=== PATIENT | male | born 1945 | race Caucasian/White ===

== ENCOUNTER 2018-11-05 08:25 | Inpatient (IN) ==
[2018-11-05] MEDS ORDERED: SODIUM CHLORIDE 0.9% 500 ML IV STA (09:16)
[2018-11-05 09:35] LABS: Basophils # 0.1 10*3/uL (0.0-0.2); Basophils % 0.6 % (0.0-0.8); Eosinophils # 0.3 10*3/uL (0.0-0.87); Eosinophils % 4.2 % (0.00-10.9); Hemoglobin 12.4 GM/DL (14.0-18.0); Immature Granulocytes % 0.2 %; Immature Granulocytes Absolute 0.02 #; Lymphocytes # 0.7 10*3/uL (1.4-4.0); Lymphocytes % 8.7 % (21.2-54.2); Mean Corpuscular HGB Conc 33.5 GM/DL (32-36); Mean Corpuscular Volume 95.1 FL (87-102); Mean Platelet Volume 10.2 FL (9.6-12.0); Monocytes % 10.8 % (1.7-12.7); Neutrophils % 75.5 % (38.7-73.9); Platelet Count 147 T/CUMM (130-400); Red Blood Count 3.89 MC/CUMM (3.8-5.5); Red Cell Distribution Width 12.4 % (9.3-17.3)
[2018-11-05 09:52] LABS: INR 3.1
[2018-11-05 09:53] LABS: PT Patient Result 33.6 SECS (9.6-12.2)
[2018-11-05 10:17] LABS: Alanine Aminotransferase 18 U/L (16-61); Albumin 3.2 G/DL (3.4-5.0); Alkaline Phosphatase 53 U/L (45-117); Aspartate Amino Transferase 15 U/L (0-37); Blood Urea Nitrogen 19 MG/DL (7-18); Calcium 8.5 MG/DL (8.5-10.1); Estimated Glom Filtration Rate 103 ML/MIN; Glucose 103 MG/DL (74-106); Osmolality,Calculated 284.1 MOS/KG (273-304); Total Protein 6.7 G/DL (6.4-8.3); Troponin I < 0.015 NG/ML (0.00-0.045)
[2018-11-05 11:09] LABS: Apearance,Urine CLEAR (Clear); Bilirubin,Urine Negative (Negative); Blood, Urine Negative (Negative); Glucose,Urine (UA) Negative (Negative); Ketones,Urine 5 mg/dL (Negative); Mucus,Urine Occasional /LPF (Occasional); Nitrite,Urine Negative (Negative); Protein,Urine Negative; RBC,Urine 2 /HPF (0-4); Squamous Epithelial Cell,Urine Occasional /HPF (0-10); Urine Color Yellow (Yellow); Urine Specific Gravity 1.013 (1.001-1.035); Urine Urobilinogen < 2.0 EU/DL (0.2-1.0); WBC,Urine <1 /HPF (0-6)
[2018-11-05] MEDS ORDERED: SODIUM CHLORIDE 0.9% 1,000 ML IV ONE (13:00)
[2018-11-05] MEDS ORDERED: ONDANSETRON 4 MG/2 ML VIAL IV PRN (13:57)
[2018-11-05] MEDS ORDERED: MORPHINE 4 MG/1 ML VIAL IV PRN (14:45)
[2018-11-05] MEDS: LOSARTAN 50 MG TABLET PO SCH (15:21)
[2018-11-05] MEDS: SODIUM CHLORIDE 0.9% 1,000 ML IV SCH (15:24)
[2018-11-05] MEDS ORDERED: LORazepam 2 MG/1 ML VIAL IV ONE ×2 (16:49→17:53)
[2018-11-05] MEDS: WARFARIN 5 MG TABLET PO SCH (17:33)
[2018-11-05] MEDS ORDERED: LORazepam 2 MG/1 ML VIAL IM ONE (17:46)
[2018-11-05] MEDS: carvediloL 12.5 MG TABLET PO SCH (19:08)
[2018-11-06] MEDS: SODIUM CHLORIDE 0.9% 1,000 ML IV SCH (04:59)
[2018-11-06 07:25] LABS: INR 3.2
[2018-11-06 07:27] LABS: PT Patient Result 34.1 SECS (9.6-12.2)
[2018-11-06 07:28] LABS: Basophils % 0.3 % (0.0-0.8); Eosinophils % 0.1 % (0.00-10.9); Hematocrit 37.9 VOL% (42.0-52.0); Hemoglobin 12.4 GM/DL (14.0-18.0); Immature Granulocytes % 0.5 %; Immature Granulocytes Absolute 0.04 #; Lymphocytes # 0.5 10*3/uL (1.4-4.0); Lymphocytes % 5.9 % (21.2-54.2); Mean Corpuscular HGB Conc 32.7 GM/DL (32-36); Mean Corpuscular Volume 96.9 FL (87-102); Mean Platelet Volume 10.8 FL (9.6-12.0); Neutrophils % 85.2 % (38.7-73.9); Platelet Count 155 T/CUMM (130-400); Red Blood Count 3.91 MC/CUMM (3.8-5.5); Red Cell Distribution Width 12.6 % (9.3-17.3); White Blood Count 8.6 T/CUMM (4-12)
[2018-11-06 07:47] LABS: Calcium 8.8 MG/DL (8.5-10.1); Osmolality,Calculated 289.8 MOS/KG (273-304); Risk Ratio 4.06; VLDL CHOLESTEROL 19.4 MG/DL
[2018-11-06] MEDS: hydrALAZINE 20 MG/1 ML VIAL IV PRN (09:13)
[2018-11-06] MEDS: LOSARTAN 50 MG TABLET PO SCH (09:14)
[2018-11-06] MEDS: PANTOPRAZOLE 40 MG TABLET PO SCH (09:14)
[2018-11-06] MEDS: carvediloL 12.5 MG TABLET PO SCH ×2 (09:14→18:22)
[2018-11-06] MEDS: DEXTROSE 5% NACL 0.45% 1,000 ML IV SCH (10:40)
[2018-11-06] MEDS: WARFARIN 5 MG TABLET PO SCH (18:22)
[2018-11-06] MEDS: cefTRIAXone 1,000 MG in SYRINGE 1 EACH IV SCH (18:24)
[2018-11-06] MEDS: TRAVATAN Z BOTH EYES SCH (21:22)
[2018-11-07] MEDS: DEXTROSE 5% NACL 0.45% 1,000 ML IV SCH ×2 (00:09→17:25)
[2018-11-07 04:24] LABS: Basophils % 0.5 % (0.0-0.8); Eosinophils # 0.3 10*3/uL (0.0-0.87); Eosinophils % 3.3 % (0.00-10.9); Hematocrit 34.8 VOL% (42.0-52.0); Hemoglobin 11.8 GM/DL (14.0-18.0); Immature Granulocytes % 0.2 %; Immature Granulocytes Absolute 0.02 #; Lymphocytes # 0.9 10*3/uL (1.4-4.0); Lymphocytes % 10.3 % (21.2-54.2); Mean Corpuscular HGB Conc 33.9 GM/DL (32-36); Mean Corpuscular Volume 95.9 FL (87-102); Mean Platelet Volume 11.2 FL (9.6-12.0); Neutrophils % 73.7 % (38.7-73.9); Platelet Count 159 T/CUMM (130-400); Red Blood Count 3.63 MC/CUMM (3.8-5.5); Red Cell Distribution Width 12.8 % (9.3-17.3); White Blood Count 8.8 T/CUMM (4-12)
[2018-11-07 04:38] LABS: INR 3.4
[2018-11-07 04:43] LABS: Calcium 8.5 MG/DL (8.5-10.1); Osmolality,Calculated 289.1 MOS/KG (273-304)
[2018-11-07 04:55] LABS: PT Patient Result 36.8 SECS (9.6-12.2)
[2018-11-07] MEDS: LOSARTAN 50 MG TABLET PO SCH (09:03)
[2018-11-07] MEDS: carvediloL 12.5 MG TABLET PO SCH ×2 (09:03→18:37)
[2018-11-07] MEDS: PANTOPRAZOLE 40 MG TABLET PO SCH (09:04)
[2018-11-07] MEDS: WARFARIN 5 MG TABLET PO SCH (17:25)
[2018-11-07] MEDS: cefTRIAXone 1,000 MG in SYRINGE 1 EACH IV SCH (17:25)
[2018-11-07 17:47] LABS: Apearance,Urine Slightly Hazy (Clear); Bacteria,Urine Occasional /HPF (Few); Bilirubin,Urine Negative (Negative); Blood, Urine Large mg/dL (Negative); Glucose,Urine (UA) Negative (Negative); Hyaline Casts,Urine 1 /LPF (0-3); Ketones,Urine Negative (Negative); Mucus,Urine Occasional /LPF (Occasional); Nitrite,Urine Negative (Negative); Protein,Urine 30 MG/DL; RBC,Urine 114 /HPF (0-4); Urine Color Yellow (Yellow); Urine Specific Gravity 1.016 (1.001-1.035); Urine Urobilinogen < 2.0 EU/DL (0.2-1.0); WBC,Urine 20 /HPF (0-6)
[2018-11-07] MEDS: ACETAMINOPHEN 325 MG TABLET PO PRN (18:37)
[2018-11-07] MEDS: TRAVATAN Z BOTH EYES SCH (20:59)
[2018-11-07] MEDS: ZIPRASIDONE 20 MG/1 ML VIAL IM PRN (21:27)
[2018-11-08] MEDS: DEXTROSE 5% NACL 0.45% 1,000 ML IV SCH ×2 (05:17→18:29)
[2018-11-08] MEDS: ZIPRASIDONE 20 MG/1 ML VIAL IM PRN (05:30)
[2018-11-08 06:48] LABS: Basophils % 0.3 % (0.0-0.8); Eosinophils # 0.3 10*3/uL (0.0-0.87); Eosinophils % 3.2 % (0.00-10.9); Hematocrit 33.8 VOL% (42.0-52.0); Hemoglobin 11.5 GM/DL (14.0-18.0); Immature Granulocytes % 0.4 %; Immature Granulocytes Absolute 0.04 #; Lymphocytes # 0.7 10*3/uL (1.4-4.0); Lymphocytes % 7.4 % (21.2-54.2); Mean Corpuscular Volume 95.2 FL (87-102); Mean Platelet Volume 10.3 FL (9.6-12.0); Monocytes % 12.4 % (1.7-12.7); Neutrophils % 76.3 % (38.7-73.9); Platelet Count 154 T/CUMM (130-400); Red Blood Count 3.55 MC/CUMM (3.8-5.5); Red Cell Distribution Width 12.6 % (9.3-17.3); White Blood Count 9.1 T/CUMM (4-12)
[2018-11-08 07:00] LABS: INR 4.8
[2018-11-08 07:21] LABS: Calcium 8.6 MG/DL (8.5-10.1)
[2018-11-08] MEDS: LOSARTAN 50 MG TABLET PO SCH (10:02)
[2018-11-08] MEDS: carvediloL 12.5 MG TABLET PO SCH ×2 (10:02→18:29)
[2018-11-08] MEDS: PANTOPRAZOLE 40 MG TABLET PO SCH (10:03)
[2018-11-08] MEDS: cefTRIAXone 2,000 MG in SYRINGE 1 EACH IV SCH (16:55)
[2018-11-08] MEDS: TRAVATAN Z BOTH EYES SCH (21:23)
[2018-11-09] MEDS: cefTRIAXone 2,000 MG in SYRINGE 1 EACH IV SCH ×2 (04:50→17:31)
[2018-11-09] MEDS: DEXTROSE 5% NACL 0.45% 1,000 ML IV SCH ×2 (07:48→22:37)
[2018-11-09 07:51] LABS: PT Patient Result 59.4 SECS (9.6-12.2)
[2018-11-09 07:53] LABS: INR 5.5
[2018-11-09 08:23] LABS: Basophils % 0.2 % (0.0-0.8); Eosinophils % 0.2 % (0.00-10.9); Hematocrit 34.7 VOL% (42.0-52.0); Hemoglobin 11.4 GM/DL (14.0-18.0); Immature Granulocytes % 0.4 %; Immature Granulocytes Absolute 0.03 #; Lymphocytes # 0.4 10*3/uL (1.4-4.0); Lymphocytes % 5.3 % (21.2-54.2); Mean Corpuscular HGB Conc 32.9 GM/DL (32-36); Mean Corpuscular Volume 98.6 FL (87-102); Mean Platelet Volume 11.3 FL (9.6-12.0); Monocytes % 10.1 % (1.7-12.7); Neutrophils % 83.8 % (38.7-73.9); Platelet Count 172 T/CUMM (130-400); Red Blood Count 3.52 MC/CUMM (3.8-5.5); Red Cell Distribution Width 13.1 % (9.3-17.3); White Blood Count 8.1 T/CUMM (4-12)
[2018-11-09 08:24] LABS: Allen Test Positive
[2018-11-09 08:25] LABS: ABG Base Excess 1.9 MMOL/L (-2.5-2.5); ABG HCO3 26.1 MMOL/L (20-26); ABG Oxygen Saturation 99.5 % (95-100); ABG PCO2 42.6 MM HG (35-48); ABG PH 7.407 (7.35-7.45); ABG TCO2 24.1 MMOL/L (23-27)
[2018-11-09 08:42] LABS: Calcium 8.6 MG/DL (8.5-10.1); Osmolality,Calculated 287.1 MOS/KG (273-304)
[2018-11-09] MEDS ORDERED: PHYTONADIONE 5 MG/5 ML ORAL.SYR PO ONE (09:30)
[2018-11-09] MEDS: carvediloL 12.5 MG TABLET PO SCH ×2 (10:34→20:10)
[2018-11-09] MEDS: PANTOPRAZOLE 40 MG TABLET PO SCH (10:34)
[2018-11-09] MEDS: LOSARTAN 50 MG TABLET PO SCH (10:34)
[2018-11-09] MEDS ORDERED: PHYTONADIONE 10 MG/1 ML AMP SUBCUT ONE (11:29)
[2018-11-09] MEDS: ALBUTEROL/IPRATROPIUM 3 ML NEB RESP TX SCH ×2 (13:10→19:45)
[2018-11-09] MEDS: VANCOMYCIN INJ 1,750 MG in SODIUM CHLORIDE 0.9% 500 ML IV SCH (14:17)
[2018-11-09] MEDS: AMPICILLIN INJ 2,000 MG in SODIUM CHLORIDE 0.9% 100 ML IV SCH ×3 (14:17→21:05)
[2018-11-09] MEDS: ACYCLOVIR INJ 750 MG in SODIUM CHLORIDE 0.9% 250 ML IV SCH (18:35)
[2018-11-09] MEDS: DIVALPROEX 250 MG TABLET PO SCH (21:55)
[2018-11-09] MEDS: TRAVATAN Z BOTH EYES SCH (22:37)
[2018-11-10] MEDS: ALBUTEROL/IPRATROPIUM 3 ML NEB RESP TX SCH ×4 (01:03→20:32)
[2018-11-10] MEDS: AMPICILLIN INJ 2,000 MG in SODIUM CHLORIDE 0.9% 100 ML IV SCH ×6 (01:44→21:23)
[2018-11-10] MEDS: ACYCLOVIR INJ 750 MG in SODIUM CHLORIDE 0.9% 250 ML IV SCH ×3 (01:45→17:36)
[2018-11-10] MEDS: VANCOMYCIN INJ 1,750 MG in SODIUM CHLORIDE 0.9% 500 ML IV SCH ×2 (01:45→13:51)
[2018-11-10] MEDS: cefTRIAXone 2,000 MG in SYRINGE 1 EACH IV SCH ×2 (05:45→16:55)
[2018-11-10] MEDS: PANTOPRAZOLE 40 MG TABLET PO SCH (08:01)
[2018-11-10] MEDS: carvediloL 12.5 MG TABLET PO SCH ×2 (08:01→21:22)
[2018-11-10] MEDS: LOSARTAN 50 MG TABLET PO SCH (08:01)
[2018-11-10] MEDS: DIVALPROEX 250 MG TABLET PO SCH ×2 (08:01→21:21)
[2018-11-10 08:32] LABS: INR 2.2
[2018-11-10 09:02] LABS: PT Patient Result 23.6 SECS (9.6-12.2)
[2018-11-10] MEDS: WARFARIN 5 MG TABLET PO SCH (18:20)
[2018-11-10] MEDS: DEXTROSE 5% NACL 0.45% 1,000 ML IV SCH (20:49)
[2018-11-10] MEDS: TRAVATAN Z BOTH EYES SCH (21:40)
[2018-11-11] MEDS: DEXTROSE 5% NACL 0.45% 1,000 ML IV SCH ×3 (00:59→16:24)
[2018-11-11] MEDS: ACETAMINOPHEN 325 MG TABLET PO PRN ×2 (01:00→08:15)
[2018-11-11] MEDS: VANCOMYCIN INJ 1,750 MG in SODIUM CHLORIDE 0.9% 500 ML IV SCH ×2 (01:01→13:55)
[2018-11-11] MEDS: ACYCLOVIR INJ 750 MG in SODIUM CHLORIDE 0.9% 250 ML IV SCH ×3 (01:01→17:59)
[2018-11-11] MEDS: AMPICILLIN INJ 2,000 MG in SODIUM CHLORIDE 0.9% 100 ML IV SCH ×6 (01:01→21:28)
[2018-11-11] MEDS: ALBUTEROL/IPRATROPIUM 3 ML NEB RESP TX SCH ×3 (02:24→20:10)
[2018-11-11 06:08] LABS: Basophils % 0.6 % (0.0-0.8); Eosinophils # 0.5 10*3/uL (0.0-0.87); Hematocrit 29.8 VOL% (42.0-52.0); Hemoglobin 10.2 GM/DL (14.0-18.0); Immature Granulocytes % 0.3 %; Immature Granulocytes Absolute 0.02 #; Lymphocytes # 0.9 10*3/uL (1.4-4.0); Lymphocytes % 13.4 % (21.2-54.2); Mean Corpuscular HGB Conc 34.2 GM/DL (32-36); Mean Corpuscular Volume 95.5 FL (87-102); Mean Platelet Volume 10.2 FL (9.6-12.0); Monocytes % 10.4 % (1.7-12.7); Neutrophils % 68.3 % (38.7-73.9); Platelet Count 186 T/CUMM (130-400); Red Blood Count 3.12 MC/CUMM (3.8-5.5); Red Cell Distribution Width 12.5 % (9.3-17.3); White Blood Count 6.5 T/CUMM (4-12)
[2018-11-11 06:17] LABS: INR 1.4; PT Patient Result 15.2 SECS (9.6-12.2)
[2018-11-11 06:24] LABS: Calcium 8.6 MG/DL (8.5-10.1); Osmolality,Calculated 289.6 MOS/KG (273-304)
[2018-11-11] MEDS: cefTRIAXone 2,000 MG in SYRINGE 1 EACH IV SCH ×2 (06:46→17:11)
[2018-11-11] MEDS ORDERED: MAGNESIUM SULF RIDER 2 GM in PREMIX 1 EACH IV PRN (07:58)
[2018-11-11] MEDS: LOSARTAN 50 MG TABLET PO SCH (08:14)
[2018-11-11] MEDS: carvediloL 12.5 MG TABLET PO SCH ×2 (08:14→18:36)
[2018-11-11] MEDS: PANTOPRAZOLE 40 MG TABLET PO SCH (08:15)
[2018-11-11] MEDS: DIVALPROEX 250 MG TABLET PO SCH ×4 (08:17→21:28)
[2018-11-11] MEDS: LIDOCAINE 5% PATCH TRANSDERM SCH (10:23)
[2018-11-11] MEDS: POTASSIUM CHLORIDE 20 MEQ/15 ML UDCUP PO PRN (10:24)
[2018-11-11] MEDS: hydrALAZINE 20 MG/1 ML VIAL IV PRN (12:29)
[2018-11-11] MEDS: WARFARIN 5 MG TABLET PO SCH (18:36)
[2018-11-11] MEDS: TRAVATAN Z BOTH EYES SCH (21:46)
[2018-11-12] MEDS: VANCOMYCIN INJ 1,750 MG in SODIUM CHLORIDE 0.9% 500 ML IV SCH ×2 (01:47→13:12)
[2018-11-12] MEDS: AMPICILLIN INJ 2,000 MG in SODIUM CHLORIDE 0.9% 100 ML IV SCH ×6 (01:50→22:54)
[2018-11-12] MEDS: ACYCLOVIR INJ 750 MG in SODIUM CHLORIDE 0.9% 250 ML IV SCH ×3 (03:12→19:59)
[2018-11-12] MEDS: cefTRIAXone 2,000 MG in SYRINGE 1 EACH IV SCH ×2 (06:05→17:57)
[2018-11-12 06:06] LABS: INR 1.3; PT Patient Result 14.2 SECS (9.6-12.2)
[2018-11-12] MEDS: ALBUTEROL/IPRATROPIUM 3 ML NEB RESP TX SCH ×4 (08:02→19:44)
[2018-11-12] MEDS: PANTOPRAZOLE 40 MG TABLET PO SCH (09:30)
[2018-11-12] MEDS: POTASSIUM CHLORIDE 20 MEQ/15 ML UDCUP PO PRN (09:30)
[2018-11-12] MEDS: DIVALPROEX 250 MG TABLET PO SCH ×2 (09:31→22:25)
[2018-11-12] MEDS: LOSARTAN 50 MG TABLET PO SCH (09:31)
[2018-11-12] MEDS: LIDOCAINE 5% PATCH TRANSDERM SCH (09:31)
[2018-11-12] MEDS: carvediloL 12.5 MG TABLET PO SCH ×2 (09:33→18:58)
[2018-11-12] MEDS: WARFARIN 5 MG TABLET PO SCH (18:58)
[2018-11-12] MEDS: TRAVATAN Z BOTH EYES SCH (22:24)
[2018-11-13] MEDS: VANCOMYCIN INJ 1,750 MG in SODIUM CHLORIDE 0.9% 500 ML IV SCH ×2 (01:41→15:00)
[2018-11-13] MEDS ORDERED: ALBUTEROL 2.5 MG/3 ML NEB RESP TX ONE (02:07)
[2018-11-13] MEDS ORDERED: propofoL 200 MG/20 ML VIAL IV ONE ×2 (02:47→02:57)
[2018-11-13] MEDS ORDERED: ETOMIDATE 20 MG/10 ML VIAL IV ONE ×2 (02:47→02:54)
[2018-11-13] MEDS ORDERED: ATROPINE 1 MG/10 ML SYRINGE ONE (02:56)
[2018-11-13] MEDS: AMPICILLIN INJ 2,000 MG in SODIUM CHLORIDE 0.9% 100 ML IV SCH ×4 (03:38→14:29)
[2018-11-13 05:44] LABS: Basophils % 0.6 % (0.0-0.8); Eosinophils # 0.1 10*3/uL (0.0-0.87); Eosinophils % 1.3 % (0.00-10.9); Hematocrit 34.5 VOL% (42.0-52.0); Hemoglobin 11.4 GM/DL (14.0-18.0); Immature Granulocytes % 1.4 %; Lymphocytes # 0.6 10*3/uL (1.4-4.0); Lymphocytes % 8.3 % (21.2-54.2); Mean Corpuscular Volume 99.1 FL (87-102); Mean Platelet Volume 10.4 FL (9.6-12.0); Monocytes % 6.8 % (1.7-12.7); Neutrophils % 81.6 % (38.7-73.9); Platelet Count 205 T/CUMM (130-400); Red Blood Count 3.48 MC/CUMM (3.8-5.5)
[2018-11-13] MEDS: PIPERACILLIN/TAZOBACTAM 3,375 MG in SODIUM CHLORIDE 0.9% 100 ML IV SCH ×3 (05:50→20:08)
[2018-11-13] MEDS: ACYCLOVIR INJ 750 MG in SODIUM CHLORIDE 0.9% 250 ML IV SCH ×3 (05:55→18:53)
[2018-11-13 05:56] LABS: Apearance,Urine Slightly Hazy (Clear); Bacteria,Urine Occasional /HPF (Few); Bilirubin,Urine Negative (Negative); Blood, Urine Small mg/dL (Negative); Glucose,Urine (UA) Negative (Negative); Hyaline Casts,Urine 5 /LPF (0-3); Ketones,Urine 20 mg/dL (Negative); Mucus,Urine Occasional /LPF (Occasional); Nitrite,Urine Negative (Negative); Protein,Urine Negative; RBC,Urine 6 /HPF (0-4); Squamous Epithelial Cell,Urine Occasional /HPF (0-10); Urine Color Amber (Yellow); Urine Specific Gravity 1.023 (1.001-1.035); Urine Urobilinogen < 2.0 EU/DL (0.2-1.0); WBC,Urine 3 /HPF (0-6)
[2018-11-13 06:11] LABS: Blood Urea Nitrogen 16 MG/DL (7-18); Calcium 8.7 MG/DL (8.5-10.1); Estimated Glom Filtration Rate 136 ML/MIN; Glucose 95 MG/DL (74-106); Osmolality,Calculated 288.7 MOS/KG (273-304); Troponin I 0.029 NG/ML (0.00-0.045)
[2018-11-13 07:12] LABS: INR 1.5; PT Patient Result 15.7 SECS (9.6-12.2)
[2018-11-13] MEDS: ALBUTEROL/IPRATROPIUM 3 ML NEB RESP TX SCH ×3 (07:58→19:27)
[2018-11-13] MEDS: PANTOPRAZOLE 40 MG TABLET PO SCH (08:03)
[2018-11-13] MEDS: DIVALPROEX 250 MG TABLET PO SCH (08:03)
[2018-11-13] MEDS: LOSARTAN 50 MG TABLET PO SCH (08:31)
[2018-11-13] MEDS: carvediloL 12.5 MG TABLET PO SCH (08:31)
[2018-11-13] MEDS: LIDOCAINE 5% PATCH TRANSDERM SCH (09:02)
[2018-11-13 09:08] LABS: Allen Test Positive; Pt O2 Delivery Device Ventilator
[2018-11-13 09:09] LABS: ABG HCO3 29.3 MMOL/L (20-26); ABG Oxygen Saturation 98.1 % (95-100); ABG PCO2 42.2 MM HG (35-48); ABG TCO2 30.6 MMOL/L (23-27)
[2018-11-13] MEDS: PANTOPRAZOLE 40 MG VIAL IV SCH (09:26)
[2018-11-13] MEDS ORDERED: ATROPINE 1 MG/10 ML SYRINGE IV PRN (09:40)
[2018-11-13] MEDS ORDERED: FUROSEMIDE 20 MG/2 ML VIAL IV SCH (10:00)
[2018-11-13 10:08] LABS: INR 1.5; PT Patient Result 16.6 SECS (9.6-12.2)
[2018-11-13] MEDS ORDERED: DEXTROSE 50% 25 GM/50 ML VIAL IV PRN (14:21)
[2018-11-13] MEDS ORDERED: GLUCAGON 1 MG VIAL IM PRN (14:21)
[2018-11-13] MEDS: INSULIN REGULAR 100 UNIT/ML SUBCUT SCH (18:13)
[2018-11-13] MEDS: WARFARIN 5 MG TABLET PO SCH (18:21)
[2018-11-13] MEDS: TRAVATAN Z BOTH EYES SCH (21:04)
[2018-11-14] MEDS: INSULIN REGULAR 100 UNIT/ML SUBCUT SCH ×4 (00:18→18:53)
[2018-11-14] MEDS: VANCOMYCIN INJ 1,750 MG in SODIUM CHLORIDE 0.9% 500 ML IV SCH ×2 (01:28→13:48)
[2018-11-14] MEDS: PIPERACILLIN/TAZOBACTAM 3,375 MG in SODIUM CHLORIDE 0.9% 100 ML IV SCH ×2 (03:25→13:45)
[2018-11-14] MEDS: ACYCLOVIR INJ 750 MG in SODIUM CHLORIDE 0.9% 250 ML IV SCH ×3 (03:25→19:17)
[2018-11-14 03:37] LABS: ABG Base Excess 7.7 MMOL/L (-2.5-2.5); ABG HCO3 31.5 MMOL/L (20-26); ABG Oxygen Saturation 98.3 % (95-100); ABG PCO2 41.4 MM HG (35-48); ABG PH 7.494 (7.35-7.45); ABG PO2 98.6 MM HG (80-95); ABG TCO2 27.9 MMOL/L (23-27); Allen Test Positive; Pt O2 Delivery Device Ventilator
[2018-11-14 04:49] LABS: Basophils # 0.1 10*3/uL (0.0-0.2); Basophils % 0.7 % (0.0-0.8); Eosinophils # 0.5 10*3/uL (0.0-0.87); Eosinophils % 5.6 % (0.00-10.9); Hematocrit 34.4 VOL% (42.0-52.0); Hemoglobin 11.4 GM/DL (14.0-18.0); Immature Granulocytes % 0.7 %; Immature Granulocytes Absolute 0.06 #; Lymphocytes % 12.3 % (21.2-54.2); Mean Corpuscular HGB Conc 33.1 GM/DL (32-36); Mean Corpuscular Volume 97.5 FL (87-102); Mean Platelet Volume 10.1 FL (9.6-12.0); Monocytes % 12.9 % (1.7-12.7); Neutrophils % 67.8 % (38.7-73.9); Platelet Count 198 T/CUMM (130-400); Red Blood Count 3.53 MC/CUMM (3.8-5.5); White Blood Count 8.5 T/CUMM (4-12)
[2018-11-14 05:05] LABS: INR 1.8; PT Patient Result 19.7 SECS (9.6-12.2)
[2018-11-14 05:34] LABS: Prealbumin 9.3 MG/DL (20-40)
[2018-11-14 05:48] LABS: Calcium 8.5 MG/DL (8.5-10.1); Osmolality,Calculated 291.7 MOS/KG (273-304)
[2018-11-14] MEDS: ALBUTEROL/IPRATROPIUM 3 ML NEB RESP TX SCH ×4 (08:45→19:37)
[2018-11-14] MEDS: LOSARTAN 50 MG TABLET PO SCH (10:40)
[2018-11-14] MEDS: methylPREDNISolone SOD SUC 125 MG/2 ML VIAL IV SCH ×2 (10:41→22:47)
[2018-11-14] MEDS: LIDOCAINE 5% PATCH TRANSDERM SCH (10:41)
[2018-11-14] MEDS: PANTOPRAZOLE 40 MG VIAL IV SCH (10:41)
[2018-11-14] MEDS ORDERED: POTASSIUM CHLORIDE 20 MEQ/15 ML UDCUP PO PRN (16:00)
[2018-11-14] MEDS: WARFARIN 5 MG TABLET PO SCH (17:25)
[2018-11-14] MEDS: hydrALAZINE 20 MG/1 ML VIAL IV PRN (17:26)
[2018-11-14] MEDS: TRAVATAN Z BOTH EYES SCH (21:30)
[2018-11-15] MEDS: INSULIN REGULAR 100 UNIT/ML SUBCUT SCH ×4 (00:10→17:55)
[2018-11-15] MEDS: PIPERACILLIN/TAZOBACTAM 3,375 MG in SODIUM CHLORIDE 0.9% 100 ML IV SCH ×3 (00:16→17:54)
[2018-11-15] MEDS: VANCOMYCIN INJ 1,750 MG in SODIUM CHLORIDE 0.9% 500 ML IV SCH (00:23)
[2018-11-15] MEDS: ALBUTEROL/IPRATROPIUM 3 ML NEB RESP TX SCH ×4 (00:55→20:25)
[2018-11-15] MEDS: ACYCLOVIR INJ 750 MG in SODIUM CHLORIDE 0.9% 250 ML IV SCH ×3 (02:45→19:15)
[2018-11-15 04:29] LABS: ABG HCO3 29.9 MMOL/L (20-26); ABG Oxygen Saturation 96.7 % (95-100); ABG PCO2 41.3 MM HG (35-48); ABG PH 7.472 (7.35-7.45); ABG PO2 80.3 MM HG (80-95); ABG TCO2 27.1 MMOL/L (23-27); Allen Test Positive; Pt O2 Delivery Device Ventilator
[2018-11-15 05:00] LABS: Basophils % 0.1 % (0.0-0.8); Hematocrit 33.3 VOL% (42.0-52.0); Immature Granulocytes % 1.1 %; Immature Granulocytes Absolute 0.09 #; Lymphocytes # 0.4 10*3/uL (1.4-4.0); Lymphocytes % 4.7 % (21.2-54.2); Mean Corpuscular Volume 96.5 FL (87-102); Mean Platelet Volume 10.4 FL (9.6-12.0); Neutrophils % 92.1 % (38.7-73.9); Platelet Count 219 T/CUMM (130-400); Red Blood Count 3.45 MC/CUMM (3.8-5.5); White Blood Count 8.5 T/CUMM (4-12)
[2018-11-15 05:03] LABS: INR 1.5; PT Patient Result 16.7 SECS (9.6-12.2)
[2018-11-15 05:34] LABS: Eosinophils 1 % (0-10); Hypochromasia 1+; Lymphocytes 3 % (20-55); Platelet Estimate Adequate; Segmented Neutrophils 94 % (50-85); Total Cells Counted 100
[2018-11-15 05:36] LABS: Calcium 8.1 MG/DL (8.5-10.1); Osmolality,Calculated 295.7 MOS/KG (273-304)
[2018-11-15] MEDS: LIDOCAINE 5% PATCH TRANSDERM SCH (10:20)
[2018-11-15] MEDS: PANTOPRAZOLE 40 MG VIAL IV SCH (10:20)
[2018-11-15] MEDS: LOSARTAN 50 MG TABLET PO SCH (10:37)
[2018-11-15] MEDS: methylPREDNISolone SOD SUC 125 MG/2 ML VIAL IV SCH ×2 (11:34→21:31)
[2018-11-15] MEDS: ENOXAPARIN 120 MG/0.8 ML SYRINGE SUBCUT SCH ×2 (12:31→22:16)
[2018-11-15] MEDS: WARFARIN 5 MG TABLET PO SCH (17:55)
[2018-11-15] MEDS: fentaNYL INJ 1,250 MCG in SODIUM CHLORIDE 0.9% 225 ML IV PRN (20:39)
[2018-11-15] MEDS: TRAVATAN Z BOTH EYES SCH (21:06)
[2018-11-16] MEDS: INSULIN REGULAR 100 UNIT/ML SUBCUT SCH ×4 (00:40→18:30)
[2018-11-16] MEDS: PIPERACILLIN/TAZOBACTAM 3,375 MG in SODIUM CHLORIDE 0.9% 100 ML IV SCH ×4 (00:41→23:40)
[2018-11-16] MEDS: ALBUTEROL/IPRATROPIUM 3 ML NEB RESP TX SCH ×4 (02:06→19:55)
[2018-11-16] MEDS: ACYCLOVIR INJ 750 MG in SODIUM CHLORIDE 0.9% 250 ML IV SCH ×2 (02:52→12:03)
[2018-11-16] MEDS: fentaNYL INJ 1,250 MCG in SODIUM CHLORIDE 0.9% 225 ML IV PRN ×2 (02:52→14:33)
[2018-11-16 03:36] LABS: ABG Base Excess 6.5 MMOL/L (-2.5-2.5); ABG HCO3 30.3 MMOL/L (20-26); ABG Oxygen Saturation 96.5 % (95-100); ABG PH 7.451 (7.35-7.45); ABG PO2 78.1 MM HG (80-95); ABG TCO2 28.2 MMOL/L (23-27); Allen Test Positive; Pt O2 Delivery Device Ventilator
[2018-11-16 05:35] LABS: INR 1.7; PT Patient Result 18.2 SECS (9.6-12.2)
[2018-11-16 05:56] LABS: Calcium 8.2 MG/DL (8.5-10.1); Osmolality,Calculated 297.6 MOS/KG (273-304)
[2018-11-16] MEDS: PANTOPRAZOLE 40 MG VIAL IV SCH (08:57)
[2018-11-16] MEDS: LIDOCAINE 5% PATCH TRANSDERM SCH (08:58)
[2018-11-16] MEDS ORDERED: FUROSEMIDE 20 MG TABLET PO SCH (09:00)
[2018-11-16] MEDS: LOSARTAN 50 MG TABLET PO SCH (11:39)
[2018-11-16] MEDS: methylPREDNISolone SOD SUC 125 MG/2 ML VIAL IV SCH ×2 (12:03→21:52)
[2018-11-16] MEDS: ENOXAPARIN 120 MG/0.8 ML SYRINGE SUBCUT SCH ×2 (12:03→23:40)
[2018-11-16] MEDS: WARFARIN 5 MG TABLET PO SCH (18:26)
[2018-11-16] MEDS: TRAVATAN Z BOTH EYES SCH (21:53)
[2018-11-17] MEDS: fentaNYL INJ 1,250 MCG in SODIUM CHLORIDE 0.9% 225 ML IV PRN ×3 (00:15→19:40)
[2018-11-17] MEDS: INSULIN REGULAR 100 UNIT/ML SUBCUT SCH ×4 (00:50→18:16)
[2018-11-17] MEDS: ALBUTEROL/IPRATROPIUM 3 ML NEB RESP TX SCH ×4 (01:08→19:43)
[2018-11-17 04:38] LABS: INR 1.6; PT Patient Result 17.8 SECS (9.6-12.2)
[2018-11-17 04:42] LABS: Basophils % 0.2 % (0.0-0.8); Hematocrit 33.6 VOL% (42.0-52.0); Hemoglobin 10.8 GM/DL (14.0-18.0); Immature Granulocytes % 1.4 %; Immature Granulocytes Absolute 0.12 #; Lymphocytes # 0.5 10*3/uL (1.4-4.0); Lymphocytes % 5.9 % (21.2-54.2); Mean Corpuscular HGB Conc 32.1 GM/DL (32-36); Mean Corpuscular Volume 100.9 FL (87-102); Mean Platelet Volume 10.5 FL (9.6-12.0); Neutrophils % 89.5 % (38.7-73.9); Platelet Count 252 T/CUMM (130-400); Red Blood Count 3.33 MC/CUMM (3.8-5.5); Red Cell Distribution Width 13.8 % (9.3-17.3); White Blood Count 8.5 T/CUMM (4-12)
[2018-11-17 04:43] LABS: Albumin 2.6 G/DL (3.4-5.0); Bilirubin,Total 0.8 MG/DL (0.2-1.0); Calcium 8.5 MG/DL (8.5-10.1); Osmolality,Calculated 301.7 MOS/KG (273-304); Total Protein 6.3 G/DL (6.4-8.3)
[2018-11-17 05:31] LABS: Lymphocytes 4 % (20-55); Nucleated Red Blood Cells 1 (0-5); Segmented Neutrophils 91 % (50-85); Total Cells Counted 100
[2018-11-17 05:32] LABS: Platelet Estimate Adequate; Polychromasia Few
[2018-11-17 05:43] LABS: Allen Test Positive; Pt O2 Delivery Device Ventilator
[2018-11-17 05:44] LABS: ABG Base Excess 6.2 MMOL/L (-2.5-2.5); ABG Oxygen Saturation 98.1 % (95-100); ABG PCO2 48.5 MM HG (35-48); ABG PH 7.423 (7.35-7.45); ABG PO2 96.2 MM HG (80-95); ABG TCO2 28.5 MMOL/L (23-27)
[2018-11-17] MEDS ORDERED: FUROSEMIDE 20 MG/2 ML VIAL IV ONE (08:08)
[2018-11-17] MEDS: PANTOPRAZOLE 40 MG VIAL IV SCH (08:11)
[2018-11-17] MEDS: PIPERACILLIN/TAZOBACTAM 3,375 MG in SODIUM CHLORIDE 0.9% 100 ML IV SCH ×2 (08:21→16:31)
[2018-11-17] MEDS: LOSARTAN 50 MG TABLET PO SCH (08:48)
[2018-11-17] MEDS: LIDOCAINE 5% PATCH TRANSDERM SCH (08:49)
[2018-11-17] MEDS: LANSOPRAZOLE ODT 30 MG TABLET PO SCH (08:49)
[2018-11-17] MEDS: methylPREDNISolone SOD SUC 125 MG/2 ML VIAL IV SCH ×2 (09:49→22:00)
[2018-11-17] MEDS: ENOXAPARIN 120 MG/0.8 ML SYRINGE SUBCUT SCH ×2 (12:08→22:11)
[2018-11-17] MEDS: WARFARIN 3 MG TABLET PO SCH (18:15)
[2018-11-17] MEDS: TRAVATAN Z BOTH EYES SCH (22:00)
[2018-11-18] MEDS: INSULIN REGULAR 100 UNIT/ML SUBCUT SCH ×4 (00:40→18:24)
[2018-11-18] MEDS: PIPERACILLIN/TAZOBACTAM 3,375 MG in SODIUM CHLORIDE 0.9% 100 ML IV SCH ×3 (00:41→15:07)
[2018-11-18] MEDS: ALBUTEROL/IPRATROPIUM 3 ML NEB RESP TX SCH ×4 (01:33→19:52)
[2018-11-18 04:26] LABS: ABG Base Excess 8.7 MMOL/L (-2.5-2.5); ABG HCO3 32.5 MMOL/L (20-26); ABG Oxygen Saturation 97.8 % (95-100); ABG PCO2 44.2 MM HG (35-48); ABG PH 7.484 (7.35-7.45); ABG PO2 86.8 MM HG (80-95)
[2018-11-18 05:14] LABS: Basophils % 0.1 % (0.0-0.8); Eosinophils % 0.3 % (0.00-10.9); Hematocrit 32.2 VOL% (42.0-52.0); Hemoglobin 10.4 GM/DL (14.0-18.0); Immature Granulocytes % 2.2 %; Immature Granulocytes Absolute 0.17 #; Lymphocytes # 1.1 10*3/uL (1.4-4.0); Lymphocytes % 14.1 % (21.2-54.2); Mean Corpuscular HGB Conc 32.3 GM/DL (32-36); Mean Platelet Volume 10.5 FL (9.6-12.0); Monocytes % 10.6 % (1.7-12.7); Neutrophils % 72.7 % (38.7-73.9); Platelet Count 228 T/CUMM (130-400); Red Blood Count 3.22 MC/CUMM (3.8-5.5); Red Cell Distribution Width 13.4 % (9.3-17.3); White Blood Count 7.8 T/CUMM (4-12)
[2018-11-18 05:16] LABS: INR 1.8; PT Patient Result 19.5 SECS (9.6-12.2)
[2018-11-18] MEDS: fentaNYL INJ 1,250 MCG in SODIUM CHLORIDE 0.9% 225 ML IV PRN ×2 (05:31→14:55)
[2018-11-18 05:59] LABS: Calcium 8.8 MG/DL (8.5-10.1); Osmolality,Calculated 298.7 MOS/KG (273-304)
[2018-11-18] MEDS: LIDOCAINE 5% PATCH TRANSDERM SCH (09:31)
[2018-11-18] MEDS: LANSOPRAZOLE ODT 30 MG TABLET PO SCH (09:32)
[2018-11-18] MEDS: methylPREDNISolone SOD SUC 125 MG/2 ML VIAL IV SCH ×2 (09:32→22:00)
[2018-11-18] MEDS: LOSARTAN 50 MG TABLET PO SCH (09:32)
[2018-11-18] MEDS: ENOXAPARIN 120 MG/0.8 ML SYRINGE SUBCUT SCH ×2 (11:56→22:00)
[2018-11-18] MEDS: WARFARIN 3 MG TABLET PO SCH (18:24)
[2018-11-18] MEDS: TRAVATAN Z BOTH EYES SCH (22:00)
[2018-11-19] MEDS: fentaNYL INJ 1,250 MCG in SODIUM CHLORIDE 0.9% 225 ML IV PRN ×3 (00:03→12:08)
[2018-11-19] MEDS: INSULIN REGULAR 100 UNIT/ML SUBCUT SCH ×4 (00:30→18:27)
[2018-11-19] MEDS: PIPERACILLIN/TAZOBACTAM 3,375 MG in SODIUM CHLORIDE 0.9% 100 ML IV SCH ×3 (01:25→16:05)
[2018-11-19] MEDS: hydrALAZINE 20 MG/1 ML VIAL IV PRN (01:30)
[2018-11-19] MEDS: ALBUTEROL/IPRATROPIUM 3 ML NEB RESP TX SCH ×4 (01:52→19:16)
[2018-11-19 04:21] LABS: ABG Base Excess 7.1 MMOL/L (-2.5-2.5); ABG HCO3 30.9 MMOL/L (20-26); ABG Oxygen Saturation 97.1 % (95-100); ABG PCO2 41.5 MM HG (35-48); ABG PH 7.484 (7.35-7.45); ABG PO2 81.4 MM HG (80-95); ABG TCO2 27.9 MMOL/L (23-27); Allen Test Positive; Pt O2 Delivery Device Ventilator
[2018-11-19 05:15] LABS: INR 1.9
[2018-11-19 05:16] LABS: Basophils % 0.1 % (0.0-0.8); Hematocrit 31.8 VOL% (42.0-52.0); Hemoglobin 10.5 GM/DL (14.0-18.0); Immature Granulocytes % 2.3 %; Immature Granulocytes Absolute 0.17 #; Lymphocytes # 0.5 10*3/uL (1.4-4.0); Lymphocytes % 6.1 % (21.2-54.2); Mean Corpuscular Volume 97.2 FL (87-102); Mean Platelet Volume 10.5 FL (9.6-12.0); Monocytes % 1.9 % (1.7-12.7); Neutrophils % 89.6 % (38.7-73.9); Platelet Count 238 T/CUMM (130-400); Red Blood Count 3.27 MC/CUMM (3.8-5.5); Red Cell Distribution Width 13.2 % (9.3-17.3); White Blood Count 7.4 T/CUMM (4-12)
[2018-11-19 05:23] LABS: Calcium 8.4 MG/DL (8.5-10.1); Osmolality,Calculated 290.4 MOS/KG (273-304)
[2018-11-19] MEDS: LIDOCAINE 5% PATCH TRANSDERM SCH (09:15)
[2018-11-19] MEDS: LOSARTAN 50 MG TABLET PO SCH (09:15)
[2018-11-19] MEDS: LANSOPRAZOLE ODT 30 MG TABLET PO SCH (09:17)
[2018-11-19] MEDS: methylPREDNISolone SOD SUC 125 MG/2 ML VIAL IV SCH ×2 (10:00→22:02)
[2018-11-19] MEDS: ENOXAPARIN 120 MG/0.8 ML SYRINGE SUBCUT SCH ×2 (12:19→22:03)
[2018-11-19] MEDS ORDERED: DEXMEDETOMIDINE 200 MCG in SODIUM CHLORIDE 0.9% 48 ML IV PRN (12:50)
[2018-11-19] MEDS: WARFARIN 3 MG TABLET PO SCH (18:27)
[2018-11-19] MEDS: DEXMEDETOMIDINE 400 MCG in SODIUM CHLORIDE 0.9% 96 ML IV PRN (18:51)
[2018-11-20] MEDS: TRAVATAN Z BOTH EYES SCH ×2 (00:10→21:57)
[2018-11-20] MEDS: INSULIN REGULAR 100 UNIT/ML SUBCUT SCH ×4 (00:16→18:32)
[2018-11-20] MEDS: PIPERACILLIN/TAZOBACTAM 3,375 MG in SODIUM CHLORIDE 0.9% 100 ML IV SCH ×3 (00:21→17:15)
[2018-11-20] MEDS: ALBUTEROL/IPRATROPIUM 3 ML NEB RESP TX SCH ×4 (00:39→19:18)
[2018-11-20 04:17] LABS: ABG Base Excess 4.7 MMOL/L (-2.5-2.5); ABG HCO3 28.6 MMOL/L (20-26); ABG Oxygen Saturation 98.2 % (95-100); ABG PCO2 44.2 MM HG (35-48); ABG PH 7.433 (7.35-7.45); ABG TCO2 26.2 MMOL/L (23-27); Allen Test Positive; Pt O2 Delivery Device Ventilator
[2018-11-20 04:47] LABS: Basophils % 0.1 % (0.0-0.8); Hematocrit 35.9 VOL% (42.0-52.0); Hemoglobin 11.7 GM/DL (14.0-18.0); Immature Granulocytes % 1.5 %; Immature Granulocytes Absolute 0.12 #; Lymphocytes # 0.4 10*3/uL (1.4-4.0); Mean Corpuscular HGB Conc 32.6 GM/DL (32-36); Mean Corpuscular Volume 97.3 FL (87-102); Mean Platelet Volume 10.6 FL (9.6-12.0); Monocytes % 6.6 % (1.7-12.7); Neutrophils % 86.8 % (38.7-73.9); Platelet Count 254 T/CUMM (130-400); Red Blood Count 3.69 MC/CUMM (3.8-5.5); Red Cell Distribution Width 13.3 % (9.3-17.3); White Blood Count 7.9 T/CUMM (4-12)
[2018-11-20 04:53] LABS: PT Patient Result 22.1 SECS (9.6-12.2)
[2018-11-20 04:58] LABS: Calcium 8.8 MG/DL (8.5-10.1); Osmolality,Calculated 289.7 MOS/KG (273-304)
[2018-11-20 05:07] LABS: Prealbumin 25.2 MG/DL (20-40)
[2018-11-20] MEDS: DEXMEDETOMIDINE 400 MCG in SODIUM CHLORIDE 0.9% 96 ML IV PRN ×3 (05:48→23:04)
[2018-11-20] MEDS: hydrALAZINE 20 MG/1 ML VIAL IV PRN ×2 (06:15→22:07)
[2018-11-20] MEDS: fentaNYL INJ 1,250 MCG in SODIUM CHLORIDE 0.9% 225 ML IV PRN ×2 (09:10→23:04)
[2018-11-20] MEDS: LOSARTAN 50 MG TABLET PO SCH (09:27)
[2018-11-20] MEDS: LANSOPRAZOLE ODT 30 MG TABLET PO SCH (09:28)
[2018-11-20] MEDS: ENOXAPARIN 120 MG/0.8 ML SYRINGE SUBCUT SCH ×2 (10:50→22:23)
[2018-11-20] MEDS: methylPREDNISolone SOD SUC 125 MG/2 ML VIAL IV SCH ×2 (10:51→21:57)
[2018-11-20] MEDS: LIDOCAINE 5% PATCH TRANSDERM SCH (15:26)
[2018-11-20] MEDS: WARFARIN 3 MG TABLET PO SCH (18:32)
[2018-11-20] MEDS: amLODIPine 10 MG TABLET PO SCH (21:57)
[2018-11-21] MEDS: ALBUTEROL/IPRATROPIUM 3 ML NEB RESP TX SCH ×4 (00:30→21:12)
[2018-11-21] MEDS: PIPERACILLIN/TAZOBACTAM 3,375 MG in SODIUM CHLORIDE 0.9% 100 ML IV SCH ×3 (01:20→16:38)
[2018-11-21] MEDS: INSULIN REGULAR 100 UNIT/ML SUBCUT SCH ×4 (01:23→18:56)
[2018-11-21 04:14] LABS: INR 2.4
[2018-11-21 04:17] LABS: Basophils % 0.1 % (0.0-0.8); Hematocrit 35.6 VOL% (42.0-52.0); Hemoglobin 11.9 GM/DL (14.0-18.0); Immature Granulocytes % 0.9 %; Immature Granulocytes Absolute 0.08 #; Lymphocytes # 0.3 10*3/uL (1.4-4.0); Lymphocytes % 3.7 % (21.2-54.2); Mean Corpuscular HGB Conc 33.4 GM/DL (32-36); Mean Corpuscular Volume 96.2 FL (87-102); Mean Platelet Volume 10.5 FL (9.6-12.0); Monocytes % 4.4 % (1.7-12.7); Neutrophils % 90.9 % (38.7-73.9); Platelet Count 250 T/CUMM (130-400); Red Cell Distribution Width 13.2 % (9.3-17.3)
[2018-11-21 04:24] LABS: PT Patient Result 25.4 SECS (9.6-12.2)
[2018-11-21 04:42] LABS: Lymphocytes 4 % (20-55); Platelet Estimate Normal; Segmented Neutrophils 92 % (50-85); Total Cells Counted 100
[2018-11-21 05:14] LABS: ABG Base Excess 5.4 MMOL/L (-2.5-2.5); ABG HCO3 29.2 MMOL/L (20-26); ABG Oxygen Saturation 96.8 % (95-100); ABG PCO2 42.1 MM HG (35-48); ABG PH 7.458 (7.35-7.45); ABG PO2 81.3 MM HG (80-95); ABG TCO2 25.9 MMOL/L (23-27); Allen Test Positive; Pt O2 Delivery Device Ventilator
[2018-11-21 05:48] LABS: Calcium 8.7 MG/DL (8.5-10.1); Osmolality,Calculated 285.5 MOS/KG (273-304)
[2018-11-21] MEDS: methylPREDNISolone SOD SUC 125 MG/2 ML VIAL IV SCH ×2 (09:40→21:43)
[2018-11-21] MEDS: LIDOCAINE 5% PATCH TRANSDERM SCH (09:40)
[2018-11-21] MEDS: LOSARTAN 50 MG TABLET PO SCH (09:41)
[2018-11-21] MEDS: LANSOPRAZOLE ODT 30 MG TABLET PO SCH (09:41)
[2018-11-21] MEDS: ENOXAPARIN 120 MG/0.8 ML SYRINGE SUBCUT SCH (12:27)
[2018-11-21] MEDS: DONEPEZIL 5 MG TABLET PO SCH (12:27)
[2018-11-21] MEDS: DEXMEDETOMIDINE 400 MCG in SODIUM CHLORIDE 0.9% 96 ML IV PRN ×2 (12:29→16:53)
[2018-11-21] MEDS: fentaNYL INJ 1,250 MCG in SODIUM CHLORIDE 0.9% 225 ML IV PRN (14:46)
[2018-11-21] MEDS: WARFARIN 3 MG TABLET PO SCH (18:44)
[2018-11-21] MEDS: TRAVATAN Z BOTH EYES SCH (21:43)
[2018-11-21] MEDS: amLODIPine 10 MG TABLET PO SCH (21:44)
[2018-11-22] MEDS: PIPERACILLIN/TAZOBACTAM 3,375 MG in SODIUM CHLORIDE 0.9% 100 ML IV SCH ×4 (00:17→23:48)
[2018-11-22] MEDS: INSULIN REGULAR 100 UNIT/ML SUBCUT SCH ×5 (00:18→23:37)
[2018-11-22] MEDS: ALBUTEROL/IPRATROPIUM 3 ML NEB RESP TX SCH ×4 (00:57→19:53)
[2018-11-22] MEDS: DEXMEDETOMIDINE 400 MCG in SODIUM CHLORIDE 0.9% 96 ML IV PRN (04:16)
[2018-11-22] MEDS: fentaNYL INJ 1,250 MCG in SODIUM CHLORIDE 0.9% 225 ML IV PRN (04:17)
[2018-11-22 04:27] LABS: Basophils % 0.1 % (0.0-0.8); Hematocrit 35.7 VOL% (42.0-52.0); Hemoglobin 11.9 GM/DL (14.0-18.0); Immature Granulocytes % 0.8 %; Immature Granulocytes Absolute 0.06 #; Lymphocytes # 0.3 10*3/uL (1.4-4.0); Lymphocytes % 4.3 % (21.2-54.2); Mean Corpuscular HGB Conc 33.3 GM/DL (32-36); Mean Corpuscular Volume 96.7 FL (87-102); Mean Platelet Volume 10.7 FL (9.6-12.0); Monocytes % 3.9 % (1.7-12.7); Neutrophils % 90.9 % (38.7-73.9); Platelet Count 255 T/CUMM (130-400); Red Blood Count 3.69 MC/CUMM (3.8-5.5); Red Cell Distribution Width 13.5 % (9.3-17.3); White Blood Count 7.2 T/CUMM (4-12)
[2018-11-22 04:35] LABS: INR 2.3
[2018-11-22 04:47] LABS: Calcium 8.4 MG/DL (8.5-10.1); Osmolality,Calculated 280.8 MOS/KG (273-304)
[2018-11-22 05:07] LABS: Lymphocytes 4 % (20-55); Metamyelocytes 1 %; Platelet Estimate Normal; Segmented Neutrophils 95 % (50-85); Total Cells Counted 100
[2018-11-22 05:18] LABS: ABG Base Excess 4.3 MMOL/L (-2.5-2.5); ABG HCO3 28.2 MMOL/L (20-26); ABG Oxygen Saturation 97.8 % (95-100); ABG PH 7.445 (7.35-7.45); ABG TCO2 24.2 MMOL/L (23-27); Allen Test Positive; Pt O2 Delivery Device Ventilator
[2018-11-22 07:24] LABS: ABG Base Excess 4.6 MMOL/L (-2.5-2.5); ABG HCO3 28.4 MMOL/L (20-26); ABG PCO2 44.8 MM HG (35-48); ABG PH 7.428 (7.35-7.45); ABG PO2 79.6 MM HG (80-95); Allen Test Positive; Pt O2 Delivery Device Other
[2018-11-22] MEDS: LANSOPRAZOLE ODT 30 MG TABLET PO SCH (08:38)
[2018-11-22] MEDS: LIDOCAINE 5% PATCH TRANSDERM SCH (08:38)
[2018-11-22] MEDS: LOSARTAN 50 MG TABLET PO SCH (08:38)
[2018-11-22] MEDS: DONEPEZIL 5 MG TABLET PO SCH (08:39)
[2018-11-22] MEDS: methylPREDNISolone SOD SUC 125 MG/2 ML VIAL IV SCH ×2 (11:32→21:38)
[2018-11-22 11:41] LABS: Allen Test Positive
[2018-11-22 11:42] LABS: ABG Base Excess 5.7 MMOL/L (-2.5-2.5); ABG HCO3 29.5 MMOL/L (20-26); ABG Oxygen Saturation 97.2 % (95-100); ABG PCO2 46.8 MM HG (35-48); ABG PH 7.429 (7.35-7.45); ABG PO2 88.5 MM HG (80-95); ABG TCO2 27.2 MMOL/L (23-27)
[2018-11-22] MEDS: HALOPERIDOL 5 MG/ML AMP IV PRN ×2 (13:04→16:15)
[2018-11-22] MEDS ORDERED: ZIPRASIDONE 20 MG/1 ML VIAL IM ONE (16:01)
[2018-11-22] MEDS ORDERED: HALOPERIDOL 5 MG/ML AMP IV ONE (16:03)
[2018-11-22] MEDS: WARFARIN 3 MG TABLET PO SCH (18:34)
[2018-11-22] MEDS: ACETAMINOPHEN 325 MG TABLET PO PRN (21:19)
[2018-11-22] MEDS: amLODIPine 10 MG TABLET PO SCH (21:19)
[2018-11-22] MEDS: TRAVATAN Z BOTH EYES SCH (21:20)
[2018-11-23] MEDS: ALBUTEROL/IPRATROPIUM 3 ML NEB RESP TX SCH ×4 (00:55→19:31)
[2018-11-23 03:27] LABS: ABG Base Excess 4.6 MMOL/L (-2.5-2.5); ABG HCO3 28.4 MMOL/L (20-26); ABG Oxygen Saturation 94.7 % (95-100); ABG PCO2 39.2 MM HG (35-48); ABG PH 7.478 (7.35-7.45); ABG PO2 72.5 MM HG (80-95); ABG TCO2 29.6 MMOL/L (23-27); Allen Test Positive
[2018-11-23 04:30] LABS: Basophils % 0.2 % (0.0-0.8); Hematocrit 36.4 VOL% (42.0-52.0); Immature Granulocytes % 1.3 %; Immature Granulocytes Absolute 0.15 #; Lymphocytes # 0.2 10*3/uL (1.4-4.0); Lymphocytes % 1.7 % (21.2-54.2); Mean Corpuscular Volume 97.3 FL (87-102); Mean Platelet Volume 10.3 FL (9.6-12.0); Monocytes % 4.5 % (1.7-12.7); Neutrophils % 92.3 % (38.7-73.9); Platelet Count 315 T/CUMM (130-400); Red Blood Count 3.74 MC/CUMM (3.8-5.5); Red Cell Distribution Width 13.8 % (9.3-17.3); White Blood Count 11.3 T/CUMM (4-12)
[2018-11-23 04:37] LABS: INR 2.8
[2018-11-23 04:45] LABS: PT Patient Result 30.1 SECS (9.6-12.2)
[2018-11-23 04:54] LABS: Prealbumin 25.3 MG/DL (20-40)
[2018-11-23 04:57] LABS: Lymphocytes 2 % (20-55); Segmented Neutrophils 95 % (50-85); Total Cells Counted 100
[2018-11-23 04:58] LABS: Microcytosis Slight; Platelet Estimate Normal
[2018-11-23 05:19] LABS: Calcium 8.8 MG/DL (8.5-10.1); Osmolality,Calculated 289.1 MOS/KG (273-304)
[2018-11-23] MEDS: INSULIN REGULAR 100 UNIT/ML SUBCUT SCH ×3 (06:11→19:31)
[2018-11-23] MEDS: PIPERACILLIN/TAZOBACTAM 3,375 MG in SODIUM CHLORIDE 0.9% 100 ML IV SCH ×2 (08:00→16:45)
[2018-11-23] MEDS: DONEPEZIL 5 MG TABLET PO SCH (08:23)
[2018-11-23] MEDS: LIDOCAINE 5% PATCH TRANSDERM SCH (08:23)
[2018-11-23] MEDS: LOSARTAN 50 MG TABLET PO SCH (08:23)
[2018-11-23] MEDS: LANSOPRAZOLE ODT 30 MG TABLET PO SCH (08:24)
[2018-11-23] MEDS: methylPREDNISolone SOD SUC 125 MG/2 ML VIAL IV SCH ×2 (11:09→21:53)
[2018-11-23] MEDS: WARFARIN 3 MG TABLET PO SCH (18:56)
[2018-11-23] MEDS: TRAVATAN Z BOTH EYES SCH (21:53)
[2018-11-23] MEDS: amLODIPine 10 MG TABLET PO SCH (21:53)
[2018-11-24] MEDS: INSULIN REGULAR 100 UNIT/ML SUBCUT SCH ×5 (00:42→23:34)
[2018-11-24] MEDS: PIPERACILLIN/TAZOBACTAM 3,375 MG in SODIUM CHLORIDE 0.9% 100 ML IV SCH ×4 (01:00→23:35)
[2018-11-24] MEDS: ALBUTEROL/IPRATROPIUM 3 ML NEB RESP TX SCH ×4 (01:23→20:53)
[2018-11-24 04:23] LABS: ABG Base Excess 6.5 MMOL/L (-2.5-2.5); ABG HCO3 29.9 MMOL/L (20-26); ABG Oxygen Saturation 96.7 % (95-100); ABG PCO2 38.4 MM HG (35-48); ABG PH 7.509 (7.35-7.45); ABG PO2 86.1 MM HG (80-95); ABG TCO2 31.1 MMOL/L (23-27); Allen Test Positive
[2018-11-24 04:27] LABS: Basophils % 0.1 % (0.0-0.8); Hematocrit 36.8 VOL% (42.0-52.0); Immature Granulocytes % 0.7 %; Immature Granulocytes Absolute 0.09 #; Lymphocytes # 0.4 10*3/uL (1.4-4.0); Lymphocytes % 2.8 % (21.2-54.2); Mean Corpuscular HGB Conc 32.6 GM/DL (32-36); Mean Corpuscular Volume 98.1 FL (87-102); Mean Platelet Volume 10.8 FL (9.6-12.0); Monocytes % 4.6 % (1.7-12.7); Neutrophils % 91.8 % (38.7-73.9); Platelet Count 297 T/CUMM (130-400); Red Blood Count 3.75 MC/CUMM (3.8-5.5); Red Cell Distribution Width 14.2 % (9.3-17.3); White Blood Count 13.8 T/CUMM (4-12)
[2018-11-24 04:33] LABS: INR 3.7
[2018-11-24 04:37] LABS: PT Patient Result 39.9 SECS (9.6-12.2)
[2018-11-24 04:51] LABS: Calcium 8.6 MG/DL (8.5-10.1); Lymphocytes 3 % (20-55); Osmolality,Calculated 287.4 MOS/KG (273-304); Segmented Neutrophils 94 % (50-85); Total Cells Counted 100
[2018-11-24 04:52] LABS: Hypochromasia 1+; Microcytosis Slight; Platelet Estimate Adequate
[2018-11-24] MEDS: LOSARTAN 50 MG TABLET PO SCH (09:58)
[2018-11-24] MEDS: DONEPEZIL 5 MG TABLET PO SCH (09:58)
[2018-11-24] MEDS: LIDOCAINE 5% PATCH TRANSDERM SCH (09:59)
[2018-11-24] MEDS: LANSOPRAZOLE ODT 30 MG TABLET PO SCH (09:59)
[2018-11-24] MEDS ORDERED: FUROSEMIDE 40 MG/4 ML VIAL IV ONE (10:00)
[2018-11-24] MEDS: methylPREDNISolone SOD SUC 125 MG/2 ML VIAL IV SCH (10:27)
[2018-11-24 15:40] LABS: Apearance,Urine CLEAR (Clear); Bacteria,Urine Occasional /HPF (Few); Bilirubin,Urine Negative (Negative); Blood, Urine Moderate mg/dL (Negative); Glucose,Urine (UA) Negative (Negative); Ketones,Urine Negative (Negative); Mucus,Urine Occasional /LPF (Occasional); Nitrite,Urine Negative (Negative); Protein,Urine Negative; RBC,Urine 43 /HPF (0-4); Urine Color Straw (Yellow); Urine Specific Gravity 1.009 (1.001-1.035); Urine Urobilinogen < 2.0 EU/DL (0.2-1.0); WBC,Urine <1 /HPF (0-6)
[2018-11-24] MEDS ORDERED: AMINO ACIDS/DEXT/LYTES 4.25-5% 2,000 ML IV SCH (20:00)
[2018-11-24] MEDS: amLODIPine 10 MG TABLET PO SCH (20:35)
[2018-11-24] MEDS: TRAVATAN Z BOTH EYES SCH (20:35)
[2018-11-25] MEDS: ALBUTEROL/IPRATROPIUM 3 ML NEB RESP TX SCH ×4 (00:40→19:39)
[2018-11-25 03:58] LABS: Basophils % 0.1 % (0.0-0.8); Eosinophils # 0.1 10*3/uL (0.0-0.87); Eosinophils % 0.4 % (0.00-10.9); Hematocrit 35.9 VOL% (42.0-52.0); Hemoglobin 11.8 GM/DL (14.0-18.0); Immature Granulocytes % 0.5 %; Immature Granulocytes Absolute 0.06 #; Lymphocytes # 0.8 10*3/uL (1.4-4.0); Lymphocytes % 6.5 % (21.2-54.2); Mean Corpuscular HGB Conc 32.9 GM/DL (32-36); Mean Corpuscular Volume 98.1 FL (87-102); Mean Platelet Volume 11.6 FL (9.6-12.0); Monocytes % 7.8 % (1.7-12.7); Neutrophils % 84.7 % (38.7-73.9); Platelet Count 159 T/CUMM (130-400); Red Blood Count 3.66 MC/CUMM (3.8-5.5); White Blood Count 11.7 T/CUMM (4-12)
[2018-11-25 04:06] LABS: INR 2.4
[2018-11-25 04:09] LABS: Calcium 8.4 MG/DL (8.5-10.1); Osmolality,Calculated 287.3 MOS/KG (273-304)
[2018-11-25 04:14] LABS: ABG Base Excess 8.3 MMOL/L (-2.5-2.5); ABG HCO3 32.1 MMOL/L (20-26); ABG Oxygen Saturation 96.6 % (95-100); ABG PCO2 42.7 MM HG (35-48); ABG PH 7.491 (7.35-7.45); ABG TCO2 28.7 MMOL/L (23-27); Allen Test Positive
[2018-11-25] MEDS: INSULIN REGULAR 100 UNIT/ML SUBCUT SCH ×4 (05:44→23:58)
[2018-11-25] MEDS ORDERED: predniSONE 20 MG TABLET PO SCH (09:00)
[2018-11-25] MEDS: PIPERACILLIN/TAZOBACTAM 3,375 MG in SODIUM CHLORIDE 0.9% 100 ML IV SCH ×3 (09:10→23:58)
[2018-11-25] MEDS ORDERED: ACETAMINOPHEN 650 MG SUPP RECTAL PRN (09:28)
[2018-11-25] MEDS: LOSARTAN 50 MG TABLET PO SCH (10:46)
[2018-11-25] MEDS: LANSOPRAZOLE ODT 30 MG TABLET PO SCH (10:46)
[2018-11-25] MEDS: DONEPEZIL 5 MG TABLET PO SCH (10:46)
[2018-11-25] MEDS: methylPREDNISolone SOD SUC 40 MG/1 ML VIAL IV SCH (12:59)
[2018-11-25] MEDS ORDERED: ALBUTEROL/IPRATROPIUM 3 ML NEB RESP TX SCH (15:00)
[2018-11-25] MEDS: ACETYLCYSTEINE 20% 800 MG/4 ML VIAL RESP TX SCH ×2 (15:21→19:39)
[2018-11-25] MEDS: FUROSEMIDE 20 MG/2 ML VIAL IV SCH (16:08)
[2018-11-25] MEDS: FAT EMULSION 20% 250 ML IV SCH ×2 (16:09→19:07)
[2018-11-25] MEDS: LIDOCAINE 5% PATCH TRANSDERM SCH (16:09)
[2018-11-25] MEDS: TRACE ELEMENTS (5) 1 ML, MULTIVITAMIN INJ 10 ML in AMINO ACIDS/DEXT/LYTES 4.25-5% 2,000 ML IV SCH (19:07)
[2018-11-25] MEDS: TRAVATAN Z BOTH EYES SCH (20:52)
[2018-11-26] MEDS: ALBUTEROL/IPRATROPIUM 3 ML NEB RESP TX SCH ×4 (00:11→19:40)
[2018-11-26] MEDS: ACETYLCYSTEINE 20% 800 MG/4 ML VIAL RESP TX SCH ×4 (00:11→19:40)
[2018-11-26 04:58] LABS: Basophils % 0.1 % (0.0-0.8); Eosinophils # 0.4 10*3/uL (0.0-0.87); Eosinophils % 3.3 % (0.00-10.9); Hematocrit 37.7 VOL% (42.0-52.0); Hemoglobin 12.2 GM/DL (14.0-18.0); Immature Granulocytes % 0.8 %; Immature Granulocytes Absolute 0.09 #; Lymphocytes # 0.8 10*3/uL (1.4-4.0); Mean Corpuscular HGB Conc 32.4 GM/DL (32-36); Mean Corpuscular Volume 99.7 FL (87-102); Mean Platelet Volume 10.9 FL (9.6-12.0); Monocytes % 9.3 % (1.7-12.7); Neutrophils % 79.5 % (38.7-73.9); Platelet Count 249 T/CUMM (130-400); Red Blood Count 3.78 MC/CUMM (3.8-5.5); White Blood Count 11.4 T/CUMM (4-12)
[2018-11-26 05:05] LABS: INR 1.8; PT Patient Result 19.2 SECS (9.6-12.2)
[2018-11-26 05:36] LABS: Calcium 8.5 MG/DL (8.5-10.1); Osmolality,Calculated 283.5 MOS/KG (273-304)
[2018-11-26] MEDS: INSULIN REGULAR 100 UNIT/ML SUBCUT SCH ×4 (06:14→23:19)
[2018-11-26] MEDS: PIPERACILLIN/TAZOBACTAM 3,375 MG in SODIUM CHLORIDE 0.9% 100 ML IV SCH ×3 (08:59→23:20)
[2018-11-26] MEDS: LIDOCAINE 5% PATCH TRANSDERM SCH (08:59)
[2018-11-26] MEDS: FUROSEMIDE 20 MG/2 ML VIAL IV SCH (09:00)
[2018-11-26] MEDS: methylPREDNISolone SOD SUC 40 MG/1 ML VIAL IV SCH (09:00)
[2018-11-26] MEDS: TRACE ELEMENTS (5) 1 ML, MULTIVITAMIN INJ 10 ML in AMINO ACIDS/DEXT/LYTES 4.25-5% 2,000 ML IV SCH (16:41)
[2018-11-26] MEDS: FAT EMULSION 20% 250 ML IV SCH (16:41)
[2018-11-26] MEDS: TRAVATAN Z BOTH EYES SCH (20:11)
[2018-11-27] MEDS: ACETYLCYSTEINE 20% 800 MG/4 ML VIAL RESP TX SCH ×4 (00:47→19:46)
[2018-11-27] MEDS: ALBUTEROL/IPRATROPIUM 3 ML NEB RESP TX SCH ×4 (00:47→19:46)
[2018-11-27 04:16] LABS: Basophils % 0.1 % (0.0-0.8); Eosinophils # 0.4 10*3/uL (0.0-0.87); Eosinophils % 3.4 % (0.00-10.9); Hematocrit 35.9 VOL% (42.0-52.0); Hemoglobin 11.6 GM/DL (14.0-18.0); Immature Granulocytes % 0.9 %; Immature Granulocytes Absolute 0.09 #; Lymphocytes # 0.7 10*3/uL (1.4-4.0); Lymphocytes % 6.6 % (21.2-54.2); Mean Corpuscular HGB Conc 32.3 GM/DL (32-36); Mean Corpuscular Volume 99.2 FL (87-102); Mean Platelet Volume 10.9 FL (9.6-12.0); Monocytes % 9.3 % (1.7-12.7); Neutrophils % 79.7 % (38.7-73.9); Platelet Count 210 T/CUMM (130-400); Red Blood Count 3.62 MC/CUMM (3.8-5.5); Red Cell Distribution Width 13.8 % (9.3-17.3); White Blood Count 10.2 T/CUMM (4-12)
[2018-11-27 04:20] LABS: INR 1.3; PT Patient Result 14.1 SECS (9.6-12.2)
[2018-11-27 04:35] LABS: Calcium 8.3 MG/DL (8.5-10.1)
[2018-11-27 04:43] LABS: Prealbumin 18.5 MG/DL (20-40)
[2018-11-27 04:48] LABS: Calcium 8.4 MG/DL (8.5-10.1); Osmolality,Calculated 283.5 MOS/KG (273-304)
[2018-11-27] MEDS: INSULIN REGULAR 100 UNIT/ML SUBCUT SCH ×3 (06:10→17:08)
[2018-11-27] MEDS: PIPERACILLIN/TAZOBACTAM 3,375 MG in SODIUM CHLORIDE 0.9% 100 ML IV SCH ×2 (08:19→15:59)
[2018-11-27] MEDS: LIDOCAINE 5% PATCH TRANSDERM SCH (08:19)
[2018-11-27] MEDS: methylPREDNISolone SOD SUC 40 MG/1 ML VIAL IV SCH (08:19)
[2018-11-27] MEDS ORDERED: propofoL 200 MG/20 ML VIAL IV ONE (09:00)
[2018-11-27] MEDS ORDERED: LIDOCAINE 2% 5 ML VIAL ONE (09:00)
[2018-11-27] MEDS ORDERED: ETOMIDATE 20 MG/10 ML VIAL IV ONE (09:00)
[2018-11-27] MEDS: LACTATED RINGERS 1,000 ML IV SCH (10:15)
[2018-11-27] MEDS: TRACE ELEMENTS (5) 1 ML, MULTIVITAMIN INJ 10 ML in AMINO ACIDS/DEXT/LYTES 4.25-5% 2,000 ML IV SCH (17:04)
[2018-11-27] MEDS: FAT EMULSION 20% 250 ML IV SCH (17:04)
[2018-11-27] MEDS: TRAVATAN Z BOTH EYES SCH (20:42)
[2018-11-28] MEDS: ALBUTEROL/IPRATROPIUM 3 ML NEB RESP TX SCH ×4 (00:43→19:43)
[2018-11-28] MEDS: ACETYLCYSTEINE 20% 800 MG/4 ML VIAL RESP TX SCH ×4 (00:43→19:43)
[2018-11-28] MEDS: INSULIN REGULAR 100 UNIT/ML SUBCUT SCH ×4 (01:39→17:16)
[2018-11-28] MEDS: PIPERACILLIN/TAZOBACTAM 3,375 MG in SODIUM CHLORIDE 0.9% 100 ML IV SCH ×3 (01:40→16:49)
[2018-11-28 04:33] LABS: INR 1.5; PT Patient Result 16.7 SECS (9.6-12.2)
[2018-11-28] MEDS: LACTATED RINGERS 1,000 ML IV SCH (08:21)
[2018-11-28] MEDS: LIDOCAINE 5% PATCH TRANSDERM SCH (08:22)
[2018-11-28] MEDS: methylPREDNISolone SOD SUC 40 MG/1 ML VIAL IV SCH (08:23)
[2018-11-28] MEDS: FAT EMULSION 20% 250 ML IV SCH (16:49)
[2018-11-28] MEDS: TRACE ELEMENTS (5) 1 ML, MULTIVITAMIN INJ 10 ML in AMINO ACIDS/DEXT/LYTES 4.25-5% 2,000 ML IV SCH (16:49)
[2018-11-28] MEDS: TRAVATAN Z BOTH EYES SCH (21:21)
[2018-11-29] MEDS: INSULIN REGULAR 100 UNIT/ML SUBCUT SCH ×4 (00:31→18:39)
[2018-11-29] MEDS: PIPERACILLIN/TAZOBACTAM 3,375 MG in SODIUM CHLORIDE 0.9% 100 ML IV SCH ×3 (00:40→16:27)
[2018-11-29] MEDS: ALBUTEROL/IPRATROPIUM 3 ML NEB RESP TX SCH ×4 (02:18→19:45)
[2018-11-29] MEDS: ACETYLCYSTEINE 20% 800 MG/4 ML VIAL RESP TX SCH ×4 (02:18→19:45)
[2018-11-29 05:05] LABS: Basophils % 0.2 % (0.0-0.8); Eosinophils # 0.2 10*3/uL (0.0-0.87); Eosinophils % 2.1 % (0.00-10.9); Hematocrit 38.7 VOL% (42.0-52.0); Hemoglobin 12.4 GM/DL (14.0-18.0); Immature Granulocytes % 0.8 %; Immature Granulocytes Absolute 0.09 #; Lymphocytes # 0.8 10*3/uL (1.4-4.0); Lymphocytes % 7.3 % (21.2-54.2); Mean Corpuscular Volume 100.5 FL (87-102); Mean Platelet Volume 10.7 FL (9.6-12.0); Monocytes % 9.9 % (1.7-12.7); Neutrophils % 79.7 % (38.7-73.9); Platelet Count 178 T/CUMM (130-400); Red Blood Count 3.85 MC/CUMM (3.8-5.5); Red Cell Distribution Width 13.9 % (9.3-17.3); White Blood Count 10.9 T/CUMM (4-12)
[2018-11-29 05:15] LABS: INR 1.2; PT Patient Result 12.6 SECS (9.6-12.2)
[2018-11-29 05:41] LABS: Calcium 8.8 MG/DL (8.5-10.1); Osmolality,Calculated 279.8 MOS/KG (273-304)
[2018-11-29] MEDS: LIDOCAINE 5% PATCH TRANSDERM SCH (09:05)
[2018-11-29] MEDS: LACTATED RINGERS 1,000 ML IV SCH (09:06)
[2018-11-29] MEDS: FAT EMULSION 20% 250 ML IV SCH (14:48)
[2018-11-29] MEDS: TRACE ELEMENTS (5) 1 ML, MULTIVITAMIN INJ 10 ML in AMINO ACIDS/DEXT/LYTES 4.25-5% 2,000 ML IV SCH (16:47)
[2018-11-29] MEDS: TRAVATAN Z BOTH EYES SCH (21:44)
[2018-11-30] MEDS: PIPERACILLIN/TAZOBACTAM 3,375 MG in SODIUM CHLORIDE 0.9% 100 ML IV SCH ×3 (00:11→17:04)
[2018-11-30] MEDS: ALBUTEROL/IPRATROPIUM 3 ML NEB RESP TX SCH ×4 (00:55→19:33)
[2018-11-30] MEDS: ACETYLCYSTEINE 20% 800 MG/4 ML VIAL RESP TX SCH ×4 (00:55→19:34)
[2018-11-30] MEDS: TRAVATAN Z BOTH EYES SCH ×2 (01:14→20:35)
[2018-11-30 04:43] LABS: INR 1.2; PT Patient Result 12.8 SECS (9.6-12.2)
[2018-11-30 05:08] LABS: Calcium 8.4 MG/DL (8.5-10.1); Osmolality,Calculated 283.5 MOS/KG (273-304)
[2018-11-30 05:32] LABS: Prealbumin 13.6 MG/DL (20-40)
[2018-11-30] MEDS: INSULIN REGULAR 100 UNIT/ML SUBCUT SCH ×4 (06:26→18:40)
[2018-11-30] MEDS: LIDOCAINE 5% PATCH TRANSDERM SCH (08:36)
[2018-11-30 10:21] LABS: Basophils % 0.3 % (0.0-0.8); Eosinophils % 2.4 % (0.00-10.9); Hematocrit 34.9 VOL% (42.0-52.0); Hemoglobin 11.4 GM/DL (14.0-18.0); Immature Granulocytes % 0.5 %; Lymphocytes % 6.6 % (21.2-54.2); Mean Corpuscular HGB Conc 32.7 GM/DL (32-36); Mean Corpuscular Volume 99.1 FL (87-102); Mean Platelet Volume 9.7 FL (9.6-12.0); Monocytes % 10.7 % (1.7-12.7); Neutrophils % 79.5 % (38.7-73.9); Platelet Count 136 T/CUMM (130-400); Red Blood Count 3.52 MC/CUMM (3.8-5.5); Red Cell Distribution Width 14.1 % (9.3-17.3); White Blood Count 10.2 T/CUMM (4-12)
[2018-11-30 10:22] LABS: Eosinophils # 0.3 10*3/uL (0.0-0.87); Immature Granulocytes Absolute 0.05 #; Lymphocytes # 0.7 10*3/uL (1.4-4.0)
[2018-11-30] MEDS: LACTATED RINGERS 1,000 ML IV SCH (12:01)
[2018-11-30 13:10] LABS: Apearance,Urine CLEAR (Clear); Bacteria,Urine Occasional /HPF (Few); Bilirubin,Urine Negative (Negative); Blood, Urine Moderate mg/dL (Negative); Glucose,Urine (UA) Negative (Negative); Ketones,Urine Negative (Negative); Nitrite,Urine Negative (Negative); Protein,Urine Negative; RBC,Urine 12 /HPF (0-4); Urine Color Yellow (Yellow); Urine Specific Gravity 1.016 (1.001-1.035); Urine Urobilinogen < 2.0 EU/DL (0.2-1.0); WBC,Urine 2 /HPF (0-6)
[2018-11-30] MEDS: WARFARIN 3 MG TABLET PO SCH (18:40)
[2018-12-01] MEDS: PIPERACILLIN/TAZOBACTAM 3,375 MG in SODIUM CHLORIDE 0.9% 100 ML IV SCH ×2 (00:02→08:24)
[2018-12-01] MEDS: INSULIN REGULAR 100 UNIT/ML SUBCUT SCH ×4 (00:03→17:37)
[2018-12-01] MEDS: ALBUTEROL/IPRATROPIUM 3 ML NEB RESP TX SCH ×4 (02:04→19:05)
[2018-12-01] MEDS: ACETYLCYSTEINE 20% 800 MG/4 ML VIAL RESP TX SCH ×4 (02:04→19:05)
[2018-12-01 04:19] LABS: Basophils % 0.3 % (0.0-0.8); Eosinophils # 0.3 10*3/uL (0.0-0.87); Eosinophils % 2.8 % (0.00-10.9); Hematocrit 33.4 VOL% (42.0-52.0); Hemoglobin 10.9 GM/DL (14.0-18.0); Immature Granulocytes % 0.6 %; Immature Granulocytes Absolute 0.06 #; Lymphocytes # 0.8 10*3/uL (1.4-4.0); Lymphocytes % 8.7 % (21.2-54.2); Mean Corpuscular HGB Conc 32.6 GM/DL (32-36); Mean Corpuscular Volume 98.8 FL (87-102); Mean Platelet Volume 10.6 FL (9.6-12.0); Monocytes % 8.5 % (1.7-12.7); Neutrophils % 79.1 % (38.7-73.9); Platelet Count 129 T/CUMM (130-400); Red Blood Count 3.38 MC/CUMM (3.8-5.5); Red Cell Distribution Width 14.1 % (9.3-17.3); White Blood Count 9.5 T/CUMM (4-12)
[2018-12-01 04:33] LABS: INR 1.2; PT Patient Result 12.5 SECS (9.6-12.2)
[2018-12-01 04:48] LABS: Platelet Estimate Adequate
[2018-12-01 04:49] LABS: Polychromasia Few
[2018-12-01 04:58] LABS: Calcium 8.3 MG/DL (8.5-10.1); Osmolality,Calculated 286.4 MOS/KG (273-304)
[2018-12-01] MEDS: LIDOCAINE 5% PATCH TRANSDERM SCH (08:25)
[2018-12-01] MEDS: LACTATED RINGERS 1,000 ML IV SCH (09:16)
[2018-12-01] MEDS: ENOXAPARIN 40 MG/0.4 ML SYRINGE SUBCUT SCH ×2 (11:23→21:57)
[2018-12-01] MEDS: WARFARIN 3 MG TABLET PO SCH (17:39)
[2018-12-01] MEDS: TRAVATAN Z BOTH EYES SCH (21:57)
[2018-12-02] MEDS: ACETYLCYSTEINE 20% 800 MG/4 ML VIAL RESP TX SCH ×4 (00:05→18:48)
[2018-12-02] MEDS: ALBUTEROL/IPRATROPIUM 3 ML NEB RESP TX SCH ×4 (00:05→18:48)
[2018-12-02] MEDS: INSULIN REGULAR 100 UNIT/ML SUBCUT SCH ×4 (03:42→17:44)
[2018-12-02 05:05] LABS: Basophils % 0.4 % (0.0-0.8); Eosinophils # 0.3 10*3/uL (0.0-0.87); Eosinophils % 3.7 % (0.00-10.9); Immature Granulocytes % 0.7 %; Immature Granulocytes Absolute 0.05 #; Lymphocytes # 0.8 10*3/uL (1.4-4.0); Mean Corpuscular HGB Conc 33.3 GM/DL (32-36); Mean Corpuscular Volume 98.8 FL (87-102); Mean Platelet Volume 10.8 FL (9.6-12.0); Monocytes % 8.7 % (1.7-12.7); Neutrophils % 75.5 % (38.7-73.9); Platelet Count 100 T/CUMM (130-400); Red Blood Count 3.34 MC/CUMM (3.8-5.5); Red Cell Distribution Width 14.1 % (9.3-17.3); White Blood Count 7.4 T/CUMM (4-12)
[2018-12-02 05:06] LABS: INR 1.1; PT Patient Result 12.4 SECS (9.6-12.2)
[2018-12-02 05:20] LABS: Calcium 8.6 MG/DL (8.5-10.1); Osmolality,Calculated 285.3 MOS/KG (273-304)
[2018-12-02 05:44] LABS: Hypochromasia Slight; Platelet Estimate Decreased
[2018-12-02] MEDS: LIDOCAINE 5% PATCH TRANSDERM SCH (08:38)
[2018-12-02] MEDS: LACTATED RINGERS 1,000 ML IV SCH (08:38)
[2018-12-02] MEDS: ENOXAPARIN 40 MG/0.4 ML SYRINGE SUBCUT SCH ×2 (12:32→21:33)
[2018-12-02] MEDS: WARFARIN 3 MG TABLET PO SCH (17:44)
[2018-12-02] MEDS: TRAVATAN Z BOTH EYES SCH (21:33)
[2018-12-03] MEDS: INSULIN REGULAR 100 UNIT/ML SUBCUT SCH ×4 (00:20→17:53)
[2018-12-03] MEDS: ALBUTEROL/IPRATROPIUM 3 ML NEB RESP TX SCH ×4 (01:20→19:55)
[2018-12-03] MEDS: ACETYLCYSTEINE 20% 800 MG/4 ML VIAL RESP TX SCH ×4 (01:20→19:55)
[2018-12-03] MEDS ORDERED: FUROSEMIDE 20 MG/2 ML VIAL IV ONE (03:52)
[2018-12-03 04:19] LABS: ABG Base Excess 6.1 MMOL/L (-2.5-2.5); ABG HCO3 29.9 MMOL/L (20-26); ABG PCO2 41.1 MM HG (35-48); ABG PH 7.475 (7.35-7.45); ABG PO2 69.4 MM HG (80-95); ABG TCO2 27.2 MMOL/L (23-27); Allen Test Positive
[2018-12-03 05:17] LABS: Basophils % 0.3 % (0.0-0.8); Eosinophils # 0.2 10*3/uL (0.0-0.87); Eosinophils % 3.6 % (0.00-10.9); Hematocrit 33.7 VOL% (42.0-52.0); Hemoglobin 11.2 GM/DL (14.0-18.0); INR 1.1; Immature Granulocytes % 0.5 %; Immature Granulocytes Absolute 0.03 #; Lymphocytes # 0.9 10*3/uL (1.4-4.0); Lymphocytes % 15.1 % (21.2-54.2); Mean Corpuscular HGB Conc 33.2 GM/DL (32-36); Mean Corpuscular Volume 98.3 FL (87-102); Mean Platelet Volume 10.9 FL (9.6-12.0); Monocytes % 7.4 % (1.7-12.7); Neutrophils % 73.1 % (38.7-73.9); PT Patient Result 11.7 SECS (9.6-12.2); Red Blood Count 3.43 MC/CUMM (3.8-5.5); Red Cell Distribution Width 14.2 % (9.3-17.3); White Blood Count 6.1 T/CUMM (4-12)
[2018-12-03 05:19] LABS: Apearance,Urine Slightly Hazy (Clear); Bilirubin,Urine Negative (Negative); Blood, Urine Large mg/dL (Negative); Glucose,Urine (UA) Negative (Negative); Ketones,Urine Negative (Negative); Mucus,Urine Many /LPF (Occasional); Nitrite,Urine Negative (Negative); Protein,Urine 30 MG/DL; RBC,Urine 1724 /HPF (0-4); Renal Epithelial Cells,Urine Occasional /HPF (<1); Urine Color Yellow (Yellow); Urine Specific Gravity 1.011 (1.001-1.035); Urine Urobilinogen < 2.0 EU/DL (0.2-1.0)
[2018-12-03 05:22] LABS: Platelet Count 83 T/CUMM (130-400)
[2018-12-03 05:32] LABS: Calcium 8.7 MG/DL (8.5-10.1); Osmolality,Calculated 288.1 MOS/KG (273-304)
[2018-12-03 05:44] LABS: Hypochromasia 1+; Platelet Estimate Decreased
[2018-12-03 08:28] LABS: ABG Base Excess 6.5 MMOL/L (-2.5-2.5); ABG HCO3 30.3 MMOL/L (20-26); ABG Oxygen Saturation 95.8 % (95-100); ABG PH 7.497 (7.35-7.45); ABG PO2 70.7 MM HG (80-95); ABG TCO2 26.9 MMOL/L (23-27)
[2018-12-03] MEDS: LIDOCAINE 5% PATCH TRANSDERM SCH (08:47)
[2018-12-03] MEDS: FUROSEMIDE 40 MG/4 ML VIAL IV SCH ×3 (09:21→22:35)
[2018-12-03] MEDS: ENOXAPARIN 40 MG/0.4 ML SYRINGE SUBCUT SCH ×2 (10:50→22:35)
[2018-12-03] MEDS: WARFARIN 5 MG TABLET PO SCH (18:00)
[2018-12-03] MEDS: TRAVATAN Z BOTH EYES SCH (22:35)
[2018-12-04] MEDS: INSULIN REGULAR 100 UNIT/ML SUBCUT SCH ×6 (00:05→23:56)
[2018-12-04] MEDS: FUROSEMIDE 40 MG/4 ML VIAL IV SCH ×2 (04:17→08:52)
[2018-12-04 05:19] LABS: Basophils % 0.5 % (0.0-0.8); Eosinophils # 0.2 10*3/uL (0.0-0.87); Immature Granulocytes % 0.5 %; Immature Granulocytes Absolute 0.04 #; Lymphocytes # 0.9 10*3/uL (1.4-4.0); Lymphocytes % 12.4 % (21.2-54.2); Mean Corpuscular HGB Conc 33.3 GM/DL (32-36); Mean Corpuscular Volume 97.3 FL (87-102); Mean Platelet Volume 11.3 FL (9.6-12.0); Monocytes % 8.1 % (1.7-12.7); Neutrophils % 75.5 % (38.7-73.9); Platelet Count 87 T/CUMM (130-400); Red Cell Distribution Width 13.8 % (9.3-17.3); White Blood Count 7.4 T/CUMM (4-12)
[2018-12-04 05:21] LABS: INR 1.1; PT Patient Result 11.8 SECS (9.6-12.2); Partial Thromboplastin Time 28.8 SECS (20.8-36.0)
[2018-12-04 05:32] LABS: Calcium 9.1 MG/DL (8.5-10.1); Osmolality,Calculated 284.4 MOS/KG (273-304)
[2018-12-04 05:37] LABS: Band Neutrophils 1 % (0-10); Eosinophils 4 % (0-10); Hypochromasia 1+; Lymphocytes 13 % (20-55); Platelet Estimate Decreased; Segmented Neutrophils 76 % (50-85); Total Cells Counted 100
[2018-12-04 05:41] LABS: Prealbumin 13.6 MG/DL (20-40)
[2018-12-04] MEDS: ACETYLCYSTEINE 20% 800 MG/4 ML VIAL RESP TX SCH ×4 (07:29→18:50)
[2018-12-04] MEDS: ALBUTEROL/IPRATROPIUM 3 ML NEB RESP TX SCH ×4 (07:29→18:50)
[2018-12-04] MEDS: ENOXAPARIN 40 MG/0.4 ML SYRINGE SUBCUT SCH ×2 (09:48→22:05)
[2018-12-04] MEDS: LIDOCAINE 5% PATCH TRANSDERM SCH (09:50)
[2018-12-04] MEDS ORDERED: TUBERCULIN SKIN TEST 0.1 ML SYRINGE INTRADERM ONE (13:10)
[2018-12-04] MEDS: WARFARIN 5 MG TABLET PO SCH (18:00)
[2018-12-04] MEDS: TRAVATAN Z BOTH EYES SCH (20:27)
[2018-12-05] MEDS: ALBUTEROL/IPRATROPIUM 3 ML NEB RESP TX SCH ×4 (00:25→19:05)
[2018-12-05] MEDS: ACETYLCYSTEINE 20% 800 MG/4 ML VIAL RESP TX SCH ×4 (00:25→19:05)
[2018-12-05 06:00] LABS: Basophils % 0.6 % (0.0-0.8); Eosinophils # 0.2 10*3/uL (0.0-0.87); Hematocrit 35.6 VOL% (42.0-52.0); Hemoglobin 11.8 GM/DL (14.0-18.0); Immature Granulocytes % 0.6 %; Immature Granulocytes Absolute 0.03 #; Lymphocytes # 0.8 10*3/uL (1.4-4.0); Mean Corpuscular HGB Conc 33.1 GM/DL (32-36); Mean Corpuscular Volume 98.1 FL (87-102); Mean Platelet Volume 11.3 FL (9.6-12.0); Monocytes % 9.7 % (1.7-12.7); Neutrophils % 69.1 % (38.7-73.9); Platelet Count 82 T/CUMM (130-400); Red Blood Count 3.63 MC/CUMM (3.8-5.5); Red Cell Distribution Width 13.8 % (9.3-17.3); White Blood Count 5.2 T/CUMM (4-12)
[2018-12-05 06:19] LABS: Calcium 9.1 MG/DL (8.5-10.1); INR 1.1; Osmolality,Calculated 289.4 MOS/KG (273-304); PT Patient Result 12.1 SECS (9.6-12.2)
[2018-12-05] MEDS: INSULIN REGULAR 100 UNIT/ML SUBCUT SCH ×4 (06:20→23:11)
[2018-12-05 06:26] LABS: Eosinophils 4 % (0-10); Hypochromasia 1+; Lymphocytes 15 % (20-55); Nucleated Red Blood Cells 1 (0-5); Platelet Estimate Decreased; Segmented Neutrophils 68 % (50-85); Total Cells Counted 100
[2018-12-05] MEDS ORDERED: FAMOTIDINE 20 MG TABLET ONE (06:36)
[2018-12-05] MEDS ORDERED: SCOPOLAMINE 1.5 MG PATCH TRANSDERM ONE (06:36)
[2018-12-05] MEDS ORDERED: HYDROmorphone 2 MG/1 ML VIAL ONE (11:24)
[2018-12-05] MEDS: DONEPEZIL 5 MG TABLET PO SCH (12:34)
[2018-12-05] MEDS: ENOXAPARIN 40 MG/0.4 ML SYRINGE SUBCUT SCH ×2 (12:35→22:16)
[2018-12-05] MEDS: LIDOCAINE 5% PATCH TRANSDERM SCH (12:35)
[2018-12-05] MEDS ORDERED: WARFARIN 7.5 MG TABLET PO SCH (18:00)
[2018-12-05] MEDS ORDERED: BENZOCAINE 20% ORAL GEL 11.9 GM TUBE TOP PRN (18:26)
[2018-12-05] MEDS: CARBIDOPA/LEVODOPA 25-100 MG TABLET PO SCH (22:16)
[2018-12-05] MEDS: TRAVATAN Z BOTH EYES SCH (22:16)
[2018-12-06] MEDS: ALBUTEROL/IPRATROPIUM 3 ML NEB RESP TX SCH ×3 (00:25→13:00)
[2018-12-06] MEDS: ACETYLCYSTEINE 20% 800 MG/4 ML VIAL RESP TX SCH ×3 (00:25→13:00)
[2018-12-06 05:54] LABS: INR 1.2; PT Patient Result 12.8 SECS (9.6-12.2)
[2018-12-06 06:24] LABS: Calcium 9.1 MG/DL (8.5-10.1); Osmolality,Calculated 286.4 MOS/KG (273-304)
[2018-12-06] MEDS: INSULIN REGULAR 100 UNIT/ML SUBCUT SCH ×2 (07:09→12:31)
[2018-12-06] MEDS: DONEPEZIL 5 MG TABLET PO SCH (09:37)
[2018-12-06] MEDS: LIDOCAINE 5% PATCH TRANSDERM SCH (09:37)
[2018-12-06] MEDS: CARBIDOPA/LEVODOPA 25-100 MG TABLET PO SCH ×2 (09:37→16:57)
[2018-12-06] MEDS: ENOXAPARIN 40 MG/0.4 ML SYRINGE SUBCUT SCH (09:37)
[2018-12-06 10:25] LABS: Basophils % 0.4 % (0.0-0.8); Eosinophils # 0.2 10*3/uL (0.0-0.87); Eosinophils % 4.6 % (0.00-10.9); Hematocrit 36.3 VOL% (42.0-52.0); Hemoglobin 12.1 GM/DL (14.0-18.0); Immature Granulocytes % 0.4 %; Immature Granulocytes Absolute 0.02 #; Lymphocytes # 0.7 10*3/uL (1.4-4.0); Lymphocytes % 13.4 % (21.2-54.2); Mean Corpuscular HGB Conc 33.3 GM/DL (32-36); Mean Corpuscular Volume 97.8 FL (87-102); Mean Platelet Volume 11.7 FL (9.6-12.0); Monocytes % 9.4 % (1.7-12.7); Neutrophils % 71.8 % (38.7-73.9); Platelet Count 91 T/CUMM (130-400); Red Blood Count 3.71 MC/CUMM (3.8-5.5); Red Cell Distribution Width 13.7 % (9.3-17.3); White Blood Count 5.2 T/CUMM (4-12)
[2018-12-06 10:43] LABS: Hypochromasia 1+; Ovalocytes Slight; Platelet Estimate Decreased
[2018-12-06 17:10] VITALS: BP 114/71
[2018-12-06] MEDS ORDERED: INFLUENZA VIRUS VACCINE 0.5 ML SYRINGE IM ONE (17:45)
[2018-12-06] MEDS ORDERED: WARFARIN 5 MG TABLET PO SCH (18:00)
== END 2018-12-06 18:37 | disposition home or self-care (01) | DRG 981 ==
LOC: EDUNIT# → EDBD → N.ED 08:25 → SUATTDRO 12:19 → N.EDINP 12:19 → N.3E 13:31 → N.ICU 11-09 10:42 → N.3E 11-11 10:11 → N.CC 11-13 02:31 → N.5E 12-01 18:29
PROVIDERS: ADMIT Internal Medicine; ATTEND Internal Medicine
PROC: EGDWPEG (ICD-10-PCS; 2018-11-27 10:35)

== ENCOUNTER 2019-01-15 20:54 | Inpatient (IN) ==
[2019-01-15] MEDS ORDERED: SODIUM CHLORIDE 0.9% 500 ML IV STA (21:25)
[2019-01-15] MEDS ORDERED: cefTRIAXone 1,000 MG in SODIUM CHLORIDE 0.9% 100 ML IV STA (21:25)
[2019-01-15] MEDS ORDERED: ACETAMINOPHEN 500 MG TABLET PO STA (21:25)
[2019-01-15 21:31] LABS: Basophils # 0.1 10*3/uL (0.0-0.2); Eosinophils # 0.1 10*3/uL (0.0-0.87); Eosinophils % 1.4 % (0.00-10.9); Hematocrit 38.2 VOL% (42.0-52.0); Hemoglobin 12.2 GM/DL (14.0-18.0); Immature Granulocytes % 0.4 %; Immature Granulocytes Absolute 0.02 #; Lymphocytes # 0.6 10*3/uL (1.4-4.0); Lymphocytes % 11.5 % (21.2-54.2); Mean Corpuscular HGB Conc 31.9 GM/DL (32-36); Mean Platelet Volume 9.8 FL (9.6-12.0); Monocytes % 9.1 % (1.7-12.7); Neutrophils % 76.6 % (38.7-73.9); Platelet Count 127 T/CUMM (130-400); Red Blood Count 3.94 MC/CUMM (3.8-5.5)
[2019-01-15 21:44] LABS: INR 2.5
[2019-01-15 21:49] LABS: PT Patient Result 26.9 SECS (9.6-12.2)
[2019-01-15 21:54] LABS: Albumin 3.1 G/DL (3.4-5.0); Bilirubin,Total 0.9 MG/DL (0.2-1.0); Calcium 8.6 MG/DL (8.5-10.1); Osmolality,Calculated 274.8 MOS/KG (273-304); Total Protein 6.8 G/DL (6.4-8.3)
[2019-01-15 21:55] LABS: Apearance,Urine CLEAR (Clear); Bilirubin,Urine Negative (Negative); Blood, Urine Moderate mg/dL (Negative); Glucose,Urine (UA) Negative (Negative); Hyaline Casts,Urine 1 /LPF (0-3); Ketones,Urine 5 mg/dL (Negative); Mucus,Urine Occasional /LPF (Occasional); Nitrite,Urine Negative (Negative); Protein,Urine Negative; RBC,Urine 4 /HPF (0-4); Squamous Epithelial Cell,Urine Occasional /HPF (0-10); Urine Color Yellow (Yellow); Urine Specific Gravity 1.023 (1.001-1.035); Urine Urobilinogen < 2.0 EU/DL (0.2-1.0); WBC,Urine <1 /HPF (0-6)
[2019-01-15] MEDS ORDERED: methylPREDNISolone SOD SUC 125 MG/2 ML VIAL IV STA (22:22)
[2019-01-15] MEDS ORDERED: ALBUTEROL/IPRATROPIUM 3 ML NEB RESP TX STA (22:22)
[2019-01-15 22:31] LABS: Sedimentation Rate-Westergren 58 MM/HR (0-20)
[2019-01-16] MEDS ORDERED: ONDANSETRON 4 MG/2 ML VIAL IV PRN (01:47)
[2019-01-16] MEDS ORDERED: CARBIDOPA/LEVODOPA 25-100 MG TABLET PO ONE (01:48)
[2019-01-16] MEDS ORDERED: WARFARIN 5 MG TABLET PO ONE (01:49)
[2019-01-16] MEDS: ALBUTEROL/IPRATROPIUM 3 ML NEB RESP TX SCH ×4 (02:10→20:05)
[2019-01-16] MEDS: PIPERACILLIN/TAZOBACTAM 3,375 MG in SODIUM CHLORIDE 0.9% 100 ML IV SCH ×2 (02:47→12:14)
[2019-01-16] MEDS: SODIUM CHLORIDE 0.9% 1,000 ML IV SCH (06:30)
[2019-01-16 06:37] LABS: Basophils % 0.5 % (0.0-0.8); Hemoglobin 11.6 GM/DL (14.0-18.0); Immature Granulocytes % 0.8 %; Immature Granulocytes Absolute 0.03 #; Lymphocytes # 0.4 10*3/uL (1.4-4.0); Lymphocytes % 9.1 % (21.2-54.2); Mean Corpuscular HGB Conc 32.2 GM/DL (32-36); Mean Corpuscular Volume 97.3 FL (87-102); Mean Platelet Volume 10.1 FL (9.6-12.0); Monocytes % 2.1 % (1.7-12.7); Neutrophils % 87.5 % (38.7-73.9); Platelet Count 130 T/CUMM (130-400); White Blood Count 3.8 T/CUMM (4-12)
[2019-01-16 07:05] LABS: Lymphocytes 15 % (20-55); Segmented Neutrophils 84 % (50-85); Total Cells Counted 100
[2019-01-16 07:06] LABS: Calcium 8.5 MG/DL (8.5-10.1); Hypochromasia 1+; Osmolality,Calculated 284.4 MOS/KG (273-304); Platelet Estimate Decreased
[2019-01-16] MEDS ORDERED: VANCOMYCIN INJ 1,750 MG in SODIUM CHLORIDE 0.9% 500 ML IV SCH (08:00)
[2019-01-16] MEDS: CARBIDOPA/LEVODOPA 25-100 MG TABLET PO SCH ×3 (09:15→20:55)
[2019-01-16] MEDS: DONEPEZIL 5 MG TABLET PO SCH (09:15)
[2019-01-16] MEDS: ASCORBIC ACID 500 MG TABLET PO SCH (09:15)
[2019-01-16] MEDS: CHOLECALCIFEROL 1,000 UNIT TABLET PO SCH (09:15)
[2019-01-16 10:24] LABS: INR 1.9; PT Patient Result 20.3 SECS (9.6-12.2)
[2019-01-16] MEDS: TRAVOPROST 0.004% OPH SOLN 2.5 ML BOTTLE BOTH EYES SCH (22:37)
[2019-01-17] MEDS: ALBUTEROL/IPRATROPIUM 3 ML NEB RESP TX SCH ×4 (00:30→20:03)
[2019-01-17] MEDS: SODIUM CHLORIDE 0.9% 1,000 ML IV SCH (01:15)
[2019-01-17 05:51] LABS: Basophils % 0.6 % (0.0-0.8); Eosinophils % 0.4 % (0.00-10.9); Hematocrit 35.3 VOL% (42.0-52.0); Hemoglobin 11.4 GM/DL (14.0-18.0); Immature Granulocytes % 0.6 %; Immature Granulocytes Absolute 0.03 #; Lymphocytes # 0.4 10*3/uL (1.4-4.0); Lymphocytes % 7.8 % (21.2-54.2); Mean Corpuscular HGB Conc 32.3 GM/DL (32-36); Mean Corpuscular Volume 97.8 FL (87-102); Monocytes % 11.2 % (1.7-12.7); Neutrophils % 79.4 % (38.7-73.9); Platelet Count 136 T/CUMM (130-400); Red Blood Count 3.61 MC/CUMM (3.8-5.5); Red Cell Distribution Width 14.2 % (9.3-17.3)
[2019-01-17 05:58] LABS: INR 1.7; PT Patient Result 18.9 SECS (9.6-12.2)
[2019-01-17 06:15] LABS: Calcium 8.9 MG/DL (8.5-10.1); Osmolality,Calculated 286.8 MOS/KG (273-304)
[2019-01-17] MEDS: CARBIDOPA/LEVODOPA 25-100 MG TABLET PO SCH ×4 (11:46→20:38)
[2019-01-17] MEDS: DONEPEZIL 5 MG TABLET PO SCH (13:01)
[2019-01-17] MEDS: ASCORBIC ACID 500 MG TABLET PO SCH (13:01)
[2019-01-17] MEDS: CHOLECALCIFEROL 1,000 UNIT TABLET PO SCH (13:01)
[2019-01-17] MEDS: ACETAMINOPHEN 325 MG TABLET PO PRN ×2 (16:12→20:38)
[2019-01-17] MEDS: PIPERACILLIN/TAZOBACTAM 3,375 MG in SODIUM CHLORIDE 0.9% 100 ML IV SCH (16:50)
[2019-01-17] MEDS: WARFARIN 5 MG TABLET PO SCH (17:27)
[2019-01-17] MEDS: ENOXAPARIN 120 MG/0.8 ML SYRINGE SUBCUT SCH (20:38)
[2019-01-18] MEDS: TRAVOPROST 0.004% OPH SOLN 2.5 ML BOTTLE BOTH EYES SCH ×2 (00:14→20:53)
[2019-01-18] MEDS: ALBUTEROL/IPRATROPIUM 3 ML NEB RESP TX SCH ×4 (01:36→19:00)
[2019-01-18] MEDS: PIPERACILLIN/TAZOBACTAM 3,375 MG in SODIUM CHLORIDE 0.9% 100 ML IV SCH ×3 (03:09→20:53)
[2019-01-18] MEDS: SODIUM CHLORIDE 0.9% 1,000 ML IV SCH (03:10)
[2019-01-18 05:39] LABS: Basophils % 1.2 % (0.0-0.8); Eosinophils # 0.1 10*3/uL (0.0-0.87); Eosinophils % 2.8 % (0.00-10.9); Hematocrit 34.4 VOL% (42.0-52.0); Hemoglobin 10.9 GM/DL (14.0-18.0); Immature Granulocytes % 0.9 %; Immature Granulocytes Absolute 0.03 #; Lymphocytes # 0.7 10*3/uL (1.4-4.0); Lymphocytes % 21.1 % (21.2-54.2); Mean Corpuscular HGB Conc 31.7 GM/DL (32-36); Mean Corpuscular Volume 98.3 FL (87-102); Mean Platelet Volume 9.9 FL (9.6-12.0); Monocytes % 9.6 % (1.7-12.7); Neutrophils % 64.4 % (38.7-73.9); Platelet Count 122 T/CUMM (130-400); Red Cell Distribution Width 14.5 % (9.3-17.3); White Blood Count 3.2 T/CUMM (4-12)
[2019-01-18 06:10] LABS: Band Neutrophils 1 % (0-10); Eosinophils 5 % (0-10); Hypochromasia 1+; Lymphocytes 13 % (20-55); Platelet Estimate Decreased; Segmented Neutrophils 70 % (50-85); Total Cells Counted 100
[2019-01-18] MEDS: DONEPEZIL 5 MG TABLET PO SCH (08:04)
[2019-01-18] MEDS: CHOLECALCIFEROL 1,000 UNIT TABLET PO SCH (08:04)
[2019-01-18] MEDS: ASCORBIC ACID 500 MG TABLET PO SCH (08:04)
[2019-01-18] MEDS: CARBIDOPA/LEVODOPA 25-100 MG TABLET PO SCH ×3 (08:05→20:53)
[2019-01-18] MEDS: ACETAMINOPHEN 325 MG TABLET PO PRN ×2 (08:05→17:07)
[2019-01-18] MEDS: ENOXAPARIN 120 MG/0.8 ML SYRINGE SUBCUT SCH ×2 (08:06→20:53)
[2019-01-18] MEDS ORDERED: IBUPROFEN 400 MG TABLET PO PRN (10:38)
[2019-01-18] MEDS: WARFARIN 5 MG TABLET PO SCH (18:00)
[2019-01-18 18:45] LABS: Apearance,Urine Slightly Hazy (Clear); Bilirubin,Urine Negative (Negative); Blood, Urine Negative (Negative); Glucose,Urine (UA) Negative (Negative); Ketones,Urine 5 mg/dL (Negative); Mucus,Urine Occasional /LPF (Occasional); Nitrite,Urine Negative (Negative); Protein,Urine 30 MG/DL; RBC,Urine 6 /HPF (0-4); Squamous Epithelial Cell,Urine Occasional /HPF (0-10); Urine Color Yellow (Yellow); Urine Specific Gravity 1.026 (1.001-1.035); Urine Urobilinogen < 2.0 EU/DL (0.2-1.0); WBC,Urine 3 /HPF (0-6)
[2019-01-19] MEDS: ALBUTEROL/IPRATROPIUM 3 ML NEB RESP TX SCH ×4 (00:30→20:31)
[2019-01-19 04:47] LABS: INR 1.5; PT Patient Result 16.3 SECS (9.6-12.2)
[2019-01-19] MEDS: PIPERACILLIN/TAZOBACTAM 3,375 MG in SODIUM CHLORIDE 0.9% 100 ML IV SCH (04:51)
[2019-01-19] MEDS: SODIUM CHLORIDE 0.9% 1,000 ML IV SCH ×2 (09:04→14:01)
[2019-01-19] MEDS: CHOLECALCIFEROL 1,000 UNIT TABLET PO SCH (09:04)
[2019-01-19] MEDS: DONEPEZIL 5 MG TABLET PO SCH (09:04)
[2019-01-19] MEDS: CARBIDOPA/LEVODOPA 25-100 MG TABLET PO SCH ×3 (09:04→20:36)
[2019-01-19] MEDS: ASCORBIC ACID 500 MG TABLET PO SCH (09:04)
[2019-01-19] MEDS: ENOXAPARIN 120 MG/0.8 ML SYRINGE SUBCUT SCH (09:05)
[2019-01-19] MEDS ORDERED: diphenhydrAMINE CAP 25 MG CAPSULE PO PRN (09:39)
[2019-01-19] MEDS: LEVOFLOXACIN 750 MG TABLET PO SCH (15:46)
[2019-01-19] MEDS: APIXABAN 5 MG TABLET PO SCH (20:36)
[2019-01-19] MEDS: TRAVOPROST 0.004% OPH SOLN 2.5 ML BOTTLE BOTH EYES SCH (20:37)
[2019-01-20] MEDS: ALBUTEROL/IPRATROPIUM 3 ML NEB RESP TX SCH ×4 (00:04→19:18)
[2019-01-20] MEDS: SODIUM CHLORIDE 0.9% 1,000 ML IV SCH ×2 (03:07→19:19)
[2019-01-20 10:23] LABS: Eosinophils # 0.1 10*3/uL (0.0-0.87); Eosinophils % 4.9 % (0.00-10.9); Hematocrit 34.7 VOL% (42.0-52.0); Hemoglobin 11.4 GM/DL (14.0-18.0); Immature Granulocytes Absolute 0.03 #; Lymphocytes # 0.6 10*3/uL (1.4-4.0); Lymphocytes % 21.2 % (21.2-54.2); Mean Corpuscular HGB Conc 32.9 GM/DL (32-36); Mean Corpuscular Volume 95.1 FL (87-102); Mean Platelet Volume 9.5 FL (9.6-12.0); Neutrophils % 63.9 % (38.7-73.9); Platelet Count 111 T/CUMM (130-400); Red Blood Count 3.65 MC/CUMM (3.8-5.5); Red Cell Distribution Width 14.4 % (9.3-17.3); White Blood Count 2.9 T/CUMM (4-12)
[2019-01-20] MEDS: ASCORBIC ACID 500 MG TABLET PO SCH (10:24)
[2019-01-20] MEDS: DONEPEZIL 5 MG TABLET PO SCH (10:24)
[2019-01-20] MEDS: LEVOFLOXACIN 750 MG TABLET PO SCH (10:24)
[2019-01-20] MEDS: CHOLECALCIFEROL 1,000 UNIT TABLET PO SCH (10:24)
[2019-01-20] MEDS: CARBIDOPA/LEVODOPA 25-100 MG TABLET PO SCH ×3 (10:25→20:51)
[2019-01-20 10:31] LABS: Calcium 8.2 MG/DL (8.5-10.1)
[2019-01-20] MEDS: APIXABAN 5 MG TABLET PO SCH ×2 (10:32→20:50)
[2019-01-20 11:18] LABS: Band Neutrophils 6 % (0-10); Eosinophils 3 % (0-10); Lymphocytes 16 % (20-55); Plasma Cells 1; Platelet Estimate Adequate; Schistocytes Slight; Segmented Neutrophils 67 % (50-85); Total Cells Counted 99
[2019-01-20] MEDS: TRAVOPROST 0.004% OPH SOLN 2.5 ML BOTTLE BOTH EYES SCH (23:33)
[2019-01-21] MEDS: ALBUTEROL/IPRATROPIUM 3 ML NEB RESP TX SCH ×2 (00:42→07:17)
[2019-01-21 07:46] VITALS: BP 132/94
[2019-01-21] MEDS: CHOLECALCIFEROL 1,000 UNIT TABLET PO SCH (08:56)
[2019-01-21] MEDS: CARBIDOPA/LEVODOPA 25-100 MG TABLET PO SCH (08:57)
[2019-01-21] MEDS: APIXABAN 5 MG TABLET PO SCH (08:57)
[2019-01-21] MEDS: LEVOFLOXACIN 750 MG TABLET PO SCH (08:57)
[2019-01-21] MEDS: ASCORBIC ACID 500 MG TABLET PO SCH (08:57)
[2019-01-21] MEDS: DONEPEZIL 5 MG TABLET PO SCH (08:57)
[2019-01-26] MEDS ORDERED: APIXABAN 5 MG TABLET PO SCH (21:00)
== END 2019-01-21 11:19 | disposition home health service (06) | DRG 864 ==
LOC: EDBD → EDUNIT# → N.ED 20:54 → N.EDINP 01-16 00:31 → SUATTDRO 01-16 00:31 → N.2E 01-16 00:53
PROVIDERS: ADMIT Internal Medicine; ATTEND Internal Medicine

== ENCOUNTER 2019-05-10 18:30 | Observation (INO) ==
[2019-05-10 20:16] LABS: Basophils # 0.1 10*3/uL (0.0-0.2); Basophils % 0.8 % (0.0-0.8); Eosinophils # 0.2 10*3/uL (0.0-0.87); Hematocrit 45.2 VOL% (42.0-52.0); Hemoglobin 14.6 GM/DL (14.0-18.0); Immature Granulocytes % 0.2 %; Immature Granulocytes Absolute 0.01 #; Lymphocytes # 1.2 10*3/uL (1.4-4.0); Lymphocytes % 20.4 % (21.2-54.2); Mean Corpuscular HGB Conc 32.3 GM/DL (32-36); Mean Corpuscular Volume 92.8 FL (87-102); Mean Platelet Volume 10.6 FL (9.6-12.0); Neutrophils % 66.6 % (38.7-73.9); Platelet Count 177 T/CUMM (130-400); Red Blood Count 4.87 MC/CUMM (3.8-5.5); Red Cell Distribution Width 14.1 % (9.3-17.3)
[2019-05-10 20:30] LABS: Apearance,Urine CLEAR (Clear); Bilirubin,Urine Negative (Negative); Blood, Urine Negative (Negative); Glucose,Urine (UA) Negative (Negative); Ketones,Urine Negative (Negative); Mucus,Urine Moderate /LPF (Occasional); Nitrite,Urine Positive (Negative); Protein,Urine 100 MG/DL; RBC,Urine 51 /HPF (0-4); Squamous Epithelial Cell,Urine Few /HPF (0-10); Urine Color Red (Yellow); Urine Specific Gravity 1.027 (1.001-1.035); WBC,Urine 2 /HPF (0-6)
[2019-05-10 20:40] LABS: Alanine Aminotransferase 10 U/L (16-61); Albumin 3.6 G/DL (3.4-5.0); Alkaline Phosphatase 58 U/L (45-117); Aspartate Amino Transferase 19 U/L (0-37); Blood Urea Nitrogen 22 MG/DL (7-18); Estimated Glom Filtration Rate 105 ML/MIN; Glucose 93 MG/DL (74-106); Osmolality,Calculated 281.4 MOS/KG (273-304); Total Protein 7.3 G/DL (6.4-8.3); Troponin I < 0.015 NG/ML (0.00-0.045)
[2019-05-10 20:47] LABS: INR 1.5; PT Patient Result 16.7 SECS (9.6-12.2); Partial Thromboplastin Time 38.6 SECS (20.8-36.0)
[2019-05-10] MEDS ORDERED: DOCUSATE SODIUM 100 MG CAPSULE PO PRN (23:22)
[2019-05-10] MEDS ORDERED: ONDANSETRON 4 MG/2 ML VIAL IV PRN (23:22)
[2019-05-10] MEDS ORDERED: ACETAMINOPHEN 325 MG TABLET PO PRN (23:22)
[2019-05-10] MEDS ORDERED: TRAVOPROST 0.004% OPH SOLN 2.5 ML BOTTLE BOTH EYES SCH (23:22)
[2019-05-11] MEDS: SODIUM CHLORIDE 0.9% 1,000 ML IV SCH ×2 (01:33→15:27)
[2019-05-11] MEDS: CEFEPIME 1,000 MG in SODIUM CHLORIDE 0.9% 100 ML IV SCH ×4 (01:33→18:16)
[2019-05-11 04:38] LABS: Basophils # 0.1 10*3/uL (0.0-0.2); Basophils % 0.9 % (0.0-0.8); Eosinophils # 0.2 10*3/uL (0.0-0.87); Eosinophils % 3.4 % (0.00-10.9); Hematocrit 43.5 VOL% (42.0-52.0); Hemoglobin 13.9 GM/DL (14.0-18.0); Immature Granulocytes % 0.2 %; Immature Granulocytes Absolute 0.01 #; Lymphocytes # 1.2 10*3/uL (1.4-4.0); Lymphocytes % 17.9 % (21.2-54.2); Mean Corpuscular Volume 93.1 FL (87-102); Mean Platelet Volume 11.2 FL (9.6-12.0); Monocytes % 8.3 % (1.7-12.7); Neutrophils % 69.3 % (38.7-73.9); Platelet Count 165 T/CUMM (130-400); Red Blood Count 4.67 MC/CUMM (3.8-5.5); White Blood Count 6.5 T/CUMM (4-12)
[2019-05-11 04:56] LABS: Calcium 8.9 MG/DL (8.5-10.1); Osmolality,Calculated 282.3 MOS/KG (273-304)
[2019-05-11] MEDS ORDERED: RIVAROXABAN 20 MG TABLET PO SCH (08:00)
[2019-05-11] MEDS ORDERED: DONEPEZIL 5 MG TABLET PO SCH (09:00)
[2019-05-11] MEDS ORDERED: CHOLECALCIFEROL 1,000 UNIT TABLET PO SCH (09:00)
[2019-05-11] MEDS ORDERED: ASCORBIC ACID 500 MG TABLET PO SCH (09:00)
[2019-05-11] MEDS: CARBIDOPA/LEVODOPA 25-100 MG TABLET PO SCH ×2 (10:26→16:04)
[2019-05-11 17:07] VITALS: BP 135/81
== END 2019-05-11 18:30 | disposition home or self-care (01) ==
LOC: EDBD → EDUNIT# → N.ED 18:30 → N.EDINP 18:30 → N.4E 22:46
PROVIDERS: ADMIT Internal Medicine; ATTEND Internal Medicine